=== PATIENT | female | born 1930 | race Caucasian/White ===

== ENCOUNTER → 2017-07-05 | Outpatient (CLI) | payer MEDICARE, BC ==
[2015-01-04 14:07] VITALS: BMI 24.7
[~2017-07-05] MED LIST: APIX5TAB PO; ASPI81TA94 PO; CALC1TAB32 PO; CARDIA PO; CARV12.578 PO; CARV25TA77 PO; CARV25TA78 PO; CARV6.2574 PO; CYCL10TA29 PO; DEN60I SUBQ; DILT-106 PO; DILT240C PO; DILT240C2 PO; DILT240C84 PO; FLE100 PO; HYDR-317 PO; HYDR-385 PO; HYDR-415 PO; LANS30CA70 PO; MECL25TA9 PO; METO-259 PO; METO25TA93 PO; METOPROLOL 25 MG PO; MOMR ENA; SIM10 PO; SIMV-49 PO; SIMV10TA96 PO; SIMV10TA98 PO; WARF-18 PO
--- NOTE | 2017-07-05 16:39 | RADIOLOGY IMAGING REPORT ---
[place] [facility] [place]: Cass Mooney : 1930 MR: [id number] V: [id number] EXAM DATE: ORDERING PHYSICIAN: ALLIE ESTRADA TECHNOLOGIST: [place] [facility] [place] Patient: Cass Mooney : 1930 Visit/Account:[id number] Date of Sevice: 07/05/2017 Exam type: 2 views right hip History: Possible fall, right hip pain Comparison: None. Findings: Subtle lucency through the neck of the right femur is noted. Recommend a CT scan to evaluate for occu lt fracture. Patient is remarkably osteopenic. Prominent enthesophytes extending from the admission. Benign chondroid lesion in the proximal metadiaphysis of the left femur is noted. Postoperative cardoza es are noted in the lower lumbosacral spine. IMPRESSION: 1. Patient is osteopenic with a subtle lucency through the neck of the right femur. I cannot exclude a nondisplaced fracture. If the patient has right hip pain, recommend a CT scan to exclude a fracture . Report Dictated By: Shai Street MD at 07/05/2017 4:31 PM Report E-Signed By: Shai Street MD at 07/05/2017 4:35 PM WSN:[id number]
== END ==
LOC: RAD 14:57
PROVIDERS: ATTEND Chiropractor
DX: M85.88 Other specified disorders of bone density and structure, other site (principal)

== ENCOUNTER → 2017-07-06 | Outpatient (CLI) | payer MEDICARE, BC ==
[2015-01-04 14:07] VITALS: BMI 24.7
--- NOTE | 2017-07-06 15:55 | RADIOLOGY IMAGING REPORT ---
FACILITY: [facility] PATIENT NAME: Cass Mooney : 1930 MR: [id number] V: [id number] EXAM DATE: ORDERING PHYSICIAN: ALLIE ESTRADA TECHNOLOGIST: [place] [facility] [place]: Cass Mooney : 1930 Visit/Account:[id number] Date of Sevice: 07/06/2017 CT of the right hip without contrast Indication: Fall. Evaluate for occult fracture. Comparison: Plain films one day earlier were reviewed. Technique: Axial CT images were obtained through the right hip. Reformatted coronal and sagittal imag es were reviewed. One of the following dose optimization techniques was utilized in the performance of this exam: Autom ated exposure control; adjustment of the mA and/or kV according to the patient's size; or use of an i terative reconstruction technique. Specific details can be referenced in the facility's radiology C T exam operational policy. Findings: No acute fracture is seen about the right hip. Specifically, no proximal femur fracture is seen. No a cetabulum or right pubic ramus fracture is seen. No right sacral fracture. Degenerative changes and postoperative changes involve the lumbar spine. There are mild severity falcon ges of sacroiliac joint osteoarthritis. Degenerative changes are seen at the pubic symphysis. At the right hip, mild-moderate osteoarthritis is present. There are enthesopathic changes at the glu teal insertions on the greater trochanter. Enthesopathic changes are seen within the right common ham string tendon. With respect to the soft tissues, no hematoma or fluid collection is seen about the right hip. No bonnie nopathy in the inguinal region. There is scattered atherosclerosis within the right femoral artery. In the pelvis, there are colonic diverticula identified. No free fluid is seen. There has been previo us hysterectomy. IMPRESSION: 1. No acute fracture deformity at the right hip. 2. No evidence of soft tissue hematoma or fluid collection. 3. Degenerative changes and postoperative changes in the low lumbar spine. 4. 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 Report Dictated By: Corey Kemp at 07/06/2017 3:43 PM Report E-Signed By: Corey Kemp at 07/06/2017 3:51 PM WSN:[id number]
== END ==
LOC: CT 13:57
PROVIDERS: ATTEND Chiropractor
DX: M16.11 Unilateral primary osteoarthritis, right hip (principal); M51.36 Other intervertebral disc degeneration, lumbar region

== ENCOUNTER → 2017-12-07 | Outpatient (CLI) | payer MEDICARE, BC ==
[2015-01-04 14:07] VITALS: BMI 24.7
[~2017-12-07] MED LIST changes: +ACET-1966 PO; +ACET-2146 PO; +ACET-2708 PO; +ASPI-1471 PO; +CALC1TAB85 PO; +CHOL10005 PO; +MELA1TAB15 PO; +METO-253 PO; -WARF-18 PO; +WARF5TAB23 PO
[2017-12-07 10:38] LABS: PLATELET COUNT, AUTOMATED 217 K/uL (150-450)
== END ==
LOC: LAB 09:59
PROVIDERS: ATTEND Family Medicine
DX: R19.7 Diarrhea, unspecified (principal)
CPT/HCPCS: 36415; 82040; 82247; 82310; 82374; 82435; 82565; 82947; 84075; 84132; 84155; 84295; 84450; 84460; 84520; 85025

== ENCOUNTER 2018-07-15 09:44 | Emergency (ER) | payer MEDICARE, BC ==
[2015-01-04 14:07] VITALS: Wt 59.0 kg
[2018-07-15] MEDS ORDERED: NS(*) 0.9% 1000 ML BAG 1,000 ML IV ONE (10:15)
--- NOTE | 2018-07-15 10:20 | ER Report ---
History and Physical Time Seen By MD: 09:55 Hx. of Stated Complaint: DIFFUSE DIARRHEA STARTING EARLY THIS AM, SON IS WORRIED ABOU DEHYDRATION CAUSING HER AFIB HPI/ROS CHIEF COMPLAINT: Diarrhea, dehydration HISTORY OF PRESENT ILLNESS: 80-year-old female with atrial fibrillation brought in by her son due to multiple episodes of loose stool this morning. Patient lives alone but adjacent to family. When son went to check on her this morning he noticed copious amounts of stool. He notes that none were bloody or black. He believes that this began at about 2 AM and patient had about 3-4 episodes. His primary reason for presenting is because she has atrial fibrillation and he is concerned that she would get dehydrated and have competitions do this. Patient history is limited due to dementia, however she is able to give review of systems. She notes that she has had some nausea, multiple loose stools, no abdominal pain. She has no fevers, chills, chest pain, shortness of breath. She has had no recent antibiotics, no recent hospitalizations, no known sick contacts. REVIEW OF SYSTEMS: Constitutional: No fever, no chills. Eyes: no blurred vision ENT: tolerating secretions Cardiovascular: No chest pain, no palpitations. Respiratory: No cough, no shortness of breath. Gastrointestinal: above Genitourinary: no dysuria Musculoskeletal: No back pain. Skin: No rashes. Neurological: No headache. Remainder of the 14 system rev: Yes Allergies: Coded Allergies: phenazopyridine (Verified Allergy, Unknown, 02/25/17) Home Meds Reported Medications Calcium Carbonate/Vitamin D3 (Caltrate 600 + D Soft Chew Tab) 1 Each Tab.chew, 1 TAB.CHEW PO DAILY 10/12/17 Cholecalciferol (Vitamin D3) (VITAMIN D3) 1,000 Unit Tablet, 1 TAB PO DAILY, TAB 10/12/17 Acetaminophen 500 Mg Tab (ACETAMINOPHEN EXTRA STRENGTH) 500 Mg Tablet, 2 TAB PO BID, TAB 10/12/17 Metoprolol Tartrate (METOPROLOL TARTRATE) 50 Mg Tab, 1 TAB PO BID 09/12/17 Warfarin Sodium (WARFARIN SODIUM) 5 Mg Tablet, 5 MG PO MWF 5mg Other 2.5, TAB take 1 tab po M/W/F, 0.5 tab po T//Sat/Sun 02/25/17 Discontinued Reported Medications Melatonin/Pyridoxine (MELATONIN 5 MG TABLET) 1 Each Tablet, 2 TAB PO HS 10/12/17 Reviewed Nurses Notes: Yes Hx Smoking: Yes Smoking Status: Former Smoker Hx Substance Use Disorder: No Hx Alcohol Use: No Constitutional Vital Sign - Last 24 Hours 07/15/18 09:57 Pulse 89 Resp 16 B/P (MAP) 133/89 Pulse Ox 90 O2 Delivery Room Air Physical Exam General Appearance: The patient is alert, has no immediate need for airway protection and no signs of toxicity. Eyes: Pupils equal and round no pallor or injection. ENT, Mouth: Mucous membranes are moist. Respiratory: There are no retractions, lungs are clear to auscultation. Cardiovascular: Irregular rate and rhythm no murmurs, rubs, gallops Gastrointestinal: Abdomen is soft and non tender, no masses, bowel sounds hyperactive Neurological: alert, oriented to person and place and events, not date. Moves all ext; no focal deficits Skin: Warm and dry, no rashes. Musculoskeletal: Extremities are nontender, nonswollen and have full range of motion. DIFFERENTIAL DIAGNOSIS: After history and physical exam differential diagnosis was considered for bacterial diarrrhea/c dif/ dehydration Medical Decision Making Data Points Result Diagram: 07/15/18 1002 07/15/18 1002 Laboratory Hematology Test 07/15/18 09:57 07/15/18 10:02 07/15/18 10:07 Urine Color Yellow Urine Clarity Clear Urine pH 5.0 pH (4.8-9.5) Urine Specific [place] 1.018 Urine Protein Negative mg/dL (NEGATIVE) Urine Glucose (UA) Negative mg/dL (NEGATIVE) Urine Ketones Negative mg/dL (NEGATIVE) Urine Blood Negative (NEGATIVE) Urine Nitrite Negative (NEGATIVE) Urine Bilirubin Negative (NEGATIVE) Urine Urobilinogen Negative mg/dL (0.2-1.9) Urine Leukocyte Esterase Negative (NEGATIVE) Urine RBC None /HPF (0-2/HPF) Urine WBC 1 /HPF (0-5/HPF) Urine Squamous Epithelial Cells None /LPF (</=FEW) Urine Bacteria Few /HPF (NONE-FEW) Urine Mucus Few /HPF (NONE-FEW) Red Blood Count 4.61 M/uL (4.17-5.56) Mean Corpuscular Volume 103.6 fL (80.0-96.0) Mean Corpuscular Hemoglobin 34.2 pg (26.0-33.0) Mean Corpuscular Hemoglobin Concent 33.0 g/dL (32.0-36.0) Red Cell Distribution Width 12.9 % (11.5-14.5) Mean Platelet Volume 7.7 fL (7.2-11.1) Neutrophils (%) (Auto) 92.3 % (39.4-72.5) Lymphocytes (%) (Auto) 5.2 % (17.6-49.6) Monocytes (%) (Auto) 2.2 % (4.1-12.4) Eosinophils (%) (Auto) 0.1 % (0.4-6.7) Basophils (%) (Auto) 0.2 % (0.3-1.4) Nucleated RBC Relative Count (auto) 0.1 /100WBC Neutrophils # (Auto) 9.4 K/uL (2.0-7.4) Lymphocytes # (Auto) 0.5 K/uL (1.3-3.6) Monocytes # (Auto) 0.2 K/uL (0.3-1.0) Eosinophils # (Auto) 0.0 K/uL (0.0-0.5) Basophils # (Auto) 0.0 K/uL (0.0-0.1) Nucleated RBC Absolute Count (auto) 0.01 K/uL Sodium Level 143 mmol/L (137-145) Potassium Level 4.3 mmol/L (3.5-5.0) Chloride Level 105 mmol/L (98-107) Carbon Dioxide Level 27 mmol/L (22-31) Blood Urea Nitrogen 24 mg/dl (7-18) Creatinine 0.80 mg/dl (0.52-1.04) Glomerular Filtration Rate Calc > 60.0 Random Glucose 128 mg/dl (75-110) Calcium Level 10.0 mg/dl (8.4-10.2) Total Bilirubin 1.5 mg/dl (0.2-1.3) Aspartate Amino Transf (AST/SGOT) 33 U/L (0-35) Alanine Aminotransferase (ALT/SGPT) 25 U/L (0-56) Alkaline Phosphatase 98 U/L (0-126) Total Protein 8.7 g/dl (6.3-8.2) Albumin 4.9 g/dl (3.5-5.0) Lipase 76 U/L (23-300) Stool Occult Blood (IFOB) Negative (NEGATIVE) Chemistry Test 07/15/18 09:57 07/15/18 10:02 07/15/18 10:07 Urine Color Yellow Urine Clarity Clear Urine pH 5.0 pH (4.8-9.5) Urine Specific [place] 1.018 Urine Protein Negative mg/dL (NEGATIVE) Urine Glucose (UA) Negative mg/dL (NEGATIVE) Urine Ketones Negative mg/dL (NEGATIVE) Urine Blood Negative (NEGATIVE) Urine Nitrite Negative (NEGATIVE) Urine Bilirubin Negative (NEGATIVE) Urine Urobilinogen Negative mg/dL (0.2-1.9) Urine Leukocyte Esterase Negative (NEGATIVE) Urine RBC None /HPF (0-2/HPF) Urine WBC 1 /HPF (0-5/HPF) Urine Squamous Epithelial Cells None /LPF (</=FEW) Urine Bacteria Few /HPF (NONE-FEW) Urine Mucus Few /HPF (NONE-FEW) White Blood Count 10.2 k/uL (4.5-11.0) Red Blood Count 4.61 M/uL (4.17-5.56) Hemoglobin 15.8 g/dL (12.0-16.0) Hematocrit 47.8 % (34.0-47.0) Mean Corpuscular Volume 103.6 fL (80.0-96.0) Mean Corpuscular Hemoglobin 34.2 pg (26.0-33.0) Mean Corpuscular Hemoglobin Concent 33.0 g/dL (32.0-36.0) Red Cell Distribution Width 12.9 % (11.5-14.5) Platelet Count 187 K/uL (150-450) Mean Platelet Volume 7.7 fL (7.2-11.1) Neutrophils (%) (Auto) 92.3 % (39.4-72.5) Lymphocytes (%) (Auto) 5.2 % (17.6-49.6) Monocytes (%) (Auto) 2.2 % (4.1-12.4) Eosinophils (%) (Auto) 0.1 % (0.4-6.7) Basophils (%) (Auto) 0.2 % (0.3-1.4) Nucleated RBC Relative Count (auto) 0.1 /100WBC Neutrophils # (Auto) 9.4 K/uL (2.0-7.4) Lymphocytes # (Auto) 0.5 K/uL (1.3-3.6) Monocytes # (Auto) 0.2 K/uL (0.3-1.0) Eosinophils # (Auto) 0.0 K/uL (0.0-0.5) Basophils # (Auto) 0.0 K/uL (0.0-0.1) Nucleated RBC Absolute Count (auto) 0.01 K/uL Glomerular Filtration Rate Calc > 60.0 Calcium Level 10.0 mg/dl (8.4-10.2) Total Bilirubin 1.5 mg/dl (0.2-1.3) Aspartate Amino Transf (AST/SGOT) 33 U/L (0-35) Alanine Aminotransferase (ALT/SGPT) 25 U/L (0-56) Alkaline Phosphatase 98 U/L (0-126) Total Protein 8.7 g/dl (6.3-8.2) Albumin 4.9 g/dl (3.5-5.0) Lipase 76 U/L (23-300) Stool Occult Blood (IFOB) Negative (NEGATIVE) Urinalysis Test 07/15/18 09:57 Urine Color Yellow Urine Clarity Clear Urine pH 5.0 pH (4.8-9.5) Urine Specific [place] 1.018 Urine Protein Negative mg/dL (NEGATIVE) Urine Glucose (UA) Negative mg/dL (NEGATIVE) Urine Ketones Negative mg/dL (NEGATIVE) Urine Blood Negative (NEGATIVE) Urine Nitrite Negative (NEGATIVE) Urine Bilirubin Negative (NEGATIVE) Urine Urobilinogen Negative mg/dL (0.2-1.9) Urine Leukocyte Esterase Negative (NEGATIVE) Urine RBC None /HPF (0-2/HPF) Urine WBC 1 /HPF (0-5/HPF) Urine Squamous Epithelial Cells None /LPF (</=FEW) Urine Bacteria Few /HPF (NONE-FEW) Urine Mucus Few /HPF (NONE-FEW) ED Course/Re-evaluation ED Course 88-year-old female presents after a few episodes of diarrhea this morning, without high-risk features. Patient appears very well, and was brought by son for concern for potential dehydration. She does not have clinical findings consi stent with dehydration. Labs are generally unremarkable with exception of mild bilirubin elevation. This is discussed with patient who will follow-up with primary doctor for reevaluation. Her stool occult is negative. Considered but doubt bacterial infectious, C. difficile, or other invasive diarrhea. Patient does not have stool in the emergency department. At this point, is reasonable to discharge with strict return precautions. Son is comfortable with this plan. Decision to Disposition Date: Jul 15, 2018 Decision to Disposition Time: 11:00 Depart Departure Latest Vital Signs Vital Signs Date Time Temp Pulse Resp B/P (MAP) Pulse Ox O2 Delivery O2 Flow Rate FiO2 07/15/18 09:57 89 16 133/89 90 Room Air Impression: Primary Impression: Diarrhea Condition: Improved Disposition: HOME OR SELF-CARE Referrals: SAMIR BRANTLEY MD (PCP) 2 Days Patient Instructions: Acute Diarrhea (ED) Additional Instructions: As we discussed, continue to hydrate as tolerated. Please return if unable to tolerate fluids, multiple episodes of vomiting, uncontrolled diarrhea, or any concerns. You may start Imodium if you have multiple episodes of diarrhea. As we discussed, your labs are generally unremarkable with the exception of the bilirubin which is slightly elevated at 1.5. Please have Dr. Briones recheck this next week. Problem Qualifiers Primary Impression: Diarrhea Diarrhea type: unspecified type Qualified Codes: R19.7 - Diarrhea, unspecified GIAN CUBA MD Jul 15, 2018 10:20
[2018-07-15 10:37] LABS: PLATELET COUNT, AUTOMATED 187 K/uL (150-450)
[2018-07-15 11:00] VITALS: BP 110/66
--- NOTE | 2018-07-15 11:54 | EKG ---
FACILITY: [facility] PATIENT NAME: AHMET REA : [id number] MR: [id number] V: [id number] EXAM DATE: ORDERING PHYSICIAN: GIAN CUBA TECHNOLOGIST: DOUG Test Reason : A FIB Blood Pressure : / mmHG Vent. 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 rate has increased BY 39 BPM QRS duration has decreased Nonspecific T wave abnormality now evident in Lateral leads Confirmed by KOTA ZIMMER ([id number]) on 07/15/2018 7:08:01 PM Referred By: ROSA ELENA Confirmed By:KOTA ZIMMER
== END 2018-07-15 11:29 | disposition home or self-care (01) ==
LOC: ER 10:03
DX: R19.7 Diarrhea, unspecified (principal)
CPT/HCPCS: 81001; 82274; 83690; 85025; 93005; 96360; 99283; J7030; 82040; 82247; 82310; 82374; 82435; 82565; 82947; 84075; 84132; 84155; 84295; 84450; 84460; 84520

== ENCOUNTER → 2018-07-24 | Outpatient (CLI) | payer MEDICARE, BC ==
[2015-01-04 14:07] VITALS: BMI 24.7
[~2018-07-24] MED LIST changes: +CITA-137 PO
== END ==
LOC: LAB 14:36
PROVIDERS: ATTEND Family Medicine
DX: E80.6 Other disorders of bilirubin metabolism (principal)
CPT/HCPCS: 36415; 82040; 82247; 82310; 82374; 82435; 82565; 82947; 84075; 84132; 84155; 84295; 84450; 84460; 84520

== ENCOUNTER 2018-08-13 12:16 | Observation (INO) | payer MEDICARE, BC ==
[~2018-08-13] VITALS: Ht 157.5 cm; Wt 52.6 kg
--- NOTE | 2018-08-13 12:27 | ER Report ---
History and Physical Time Seen By MD: 12:27 HPI/ROS CHIEF COMPLAINT: Right ankle, left foot pain HISTORY OF PRESENT ILLNESS: 88-year-old female patient presents to emergency room with complaint of right ankle, left foot pain. Patient states that she had a fall down the stairs this morning. The patient's [id number] states that she is not sure when this occurred. She states that she got a call from the patient and went to check on her. When she found her she was crawling try to make it to the bathroom. Patient has not taken any medication for this. Patient has past medical history of dementia. Patient denies any head injury or neck pain. She denies any nausea, vomiting or diarrhea. REVIEW OF SYSTEMS: Respiratory: No cough, no dyspnea. Cardiovascular: No chest pain, no palpitations. Gastrointestinal: No vomiting, no abdominal pain. Musculoskeletal: As noted above Allergies: Coded Allergies: phenazopyridine (Verified Allergy, Unknown, 08/13/18) Home Meds Active Scripts Citalopram Hydrobromide (CITALOPRAM HBR) 10 Mg Tablet, 10 MG PO QDAY for 30 Days, #30 TAB Prov:SAMIR BRANTLEY MD 07/24/18 Reported Medications Calcium Carbonate/Vitamin D3 (Caltrate 600 + D Soft Chew Tab) 1 Each Tab.chew, 1 TAB.CHEW PO DAILY 10/12/17 Acetaminophen 500 Mg Tab (ACETAMINOPHEN EXTRA STRENGTH) 500 Mg Tablet, 2 TAB PO BID, TAB 10/12/17 Metoprolol Tartrate (METOPROLOL TARTRATE) 50 Mg Tab, 1 TAB PO BID 09/12/17 Warfarin Sodium (WARFARIN SODIUM) 5 Mg Tablet, 5 MG PO MWF 5mg Other 2.5, TAB take 1 tab po M//, 0.5 tab po //Sat/Sun 02/25/17 Discontinued Reported Medications Cholecalciferol (Vitamin D3) (VITAMIN D3) 1,000 Unit Tablet, 1 TAB PO DAILY, TAB 10/12/17 Past Medical/Surgical History Patient has a past medical history of dementia, A. fib, hypertension, reflux, hysterectomy, arthritis, back pain, sinus surgery, anxiety. Patient has a surgical history of angioplasty 2, hysterectomy, spinal surgery. Patient has a family medical history of cancer. Reviewed Nurses Notes: Yes Hx Smoking: Yes Smoking Status: Former Smoker Hx Substance Use Disorder: No Hx Alcohol Use: No Constitutional Vital Sign - Last 24 Hours 08/13/18 08/13/18 08/13/18 08/13/18 12:16 12:25 12:27 12:30 Temp 97.9 Pulse ??? 72 Resp 20 B/P (MAP) 114/57 114/57 (76) 107/41 (63) Pulse Ox 90 O2 Delivery Room Air 08/13/18 08/13/18 08/13/18 08/13/18 12:31 12:46 13:00 13:01 Pulse 69 69 67 B/P (MAP) 57/38 (44) Pulse Ox 90 90 89 08/13/18 08/13/18 08/13/18 08/13/18 13:16 14:00 14:15 14:30 Pulse 78 68 61 64 B/P (MAP) 108/54 (72) 99/80 (86) Pulse Ox 77 93 86 89 08/13/18 08/13/18 08/13/18 14:45 15:00 15:15 Pulse 70 ? B/P (MAP) ???/??? (1665) Pulse Ox 89 81 Physical Exam General Appearance: The patient is alert, has no immediate need for airway protection and no current signs of toxicity. Respiratory: Chest is non tender, lungs are clear to auscultation. Cardiac: regular rate and rhythm Gastrointestinal: Abdomen is soft and non tender, no masses, bowel sounds normal. Musculoskeletal: Neck: Neck is supple and non tender. Extremities have full range of motion and are non tender. Patient has significant swelling and bruising to lateral malleolus on the right ankle and left foot and lateral malleolus. Skin: No rashes or lesions. Patient has blistering to top of the foot. DIFFERENTIAL DIAGNOSIS: After history and physical exam differential diagnosis was considered for fracture, contusion, sprain. Medical Decision Making EKG/Imaging Imaging INDICATION: fall, with fracture. DATE: 08/13/2018 2:02 PM. TECHNIQUE: CT FOOT W/O LT. Noncontrast axial CT imaging was performed through the left foot with sagittal and coronal reformats. One of the following dose optimization techniques was utilized in the performance of this exam: Automated exposure control; adjustment of the mA and/or kV according to the patient's size; or use of an iterative reconstruction technique. Specific details can be referenced in the facility's radiology CT exam operational policy. COMPARISON: Foot radiographs and ankle radiographs of the same day. FINDINGS: Fracture of the cuboid is extensively comminuted. A fracture of the lateral cuneiform is more subtle. Involving the undersurface of the bone. The middle cuneiform and medial cuneiform are intact. Fracturing of the fourth metatarsal base is notable on the medial side. A fracture of the third metatarsal base is oblique and nondisplaced. A fracture of the second metatarsal base is comminuted and mildly displaced. There is a fracture at the undersurface of the first metatarsal base. There may be an area of subtle fragmentation involving the navicular immediately adjacent to the anterior process of the calcaneus. Bone density is diffusely decreased at the foot and ankle. Subcutaneous soft tissues are diffusely edematous at the ankle. IMPRESSION: 1. Extensively comminuted fracture of the cuboid. 2. Fractures of the first through fourth metatarsal bases as noted. 3. Subtle fracture of the lateral cuneiform. 4. Possible area of fragmentation involving the navicular immediately adjacent to the anterior process of the calcaneus. Report Dictated By: Puma Roberts MD at 08/13/2018 2:02 PM Report E-Signed By: Puma Roberts MD at 08/13/2018 2:20 PM EXAMINATION: CT Cervical Spine Without Contrast 08/13/2018 12:40 PM HISTORY: Fall. Pain. COMPARISON STUDIES: Separate CT head today. TECHNIQUE: Axial images were obtained from the skull base through the upper thoracic spine without IV contrast administration. Coronal and sagittal reformatted images were obtained from the axial source data. One of the following dose optimization techniques was utilized in the performance of this exam: Automated exposure control; adjustment of the mA and/or kV according to the patient's size; or use of an iterative reconstruction technique. Specific details can be referenced in the facility's radiology CT exam operational policy. FINDINGS: Pre-vertebral soft tissues: negative Alignment: Slight degenerative appearing anterolistheses at C3-4 and C4-5 and C7-T1. Vertebral bodies: negative Posterior elements: Facet spurring most notably towards the left at C2-3 and C4- 5. Disc Spaces: Moderate disc loss and spurring at C5-6 with milder degenerative changes at other levels. Visualized soft tissues anterior neck: Left carotid atherosclerotic calcifications. Visualized lung / mediastinum: Emphysema. IMPRESSION: No acute bony injury of the cervical spine. Report Dictated By: Hayden Horowitz MD at 08/13/2018 1:57 PM Report E-Signed By: Hayden Horowitz MD at 08/13/2018 2:02 PM EXAMINATION: CT Head Without Contrast 08/13/2018 12:40 PM HISTORY: fall with pain TECHNIQUE: Contiguous axial images were obtained from the skull base to the vertex without intravenous contrast. One of the following dose optimization techniques was utilized in the performance of this exam: Automated exposure control; adjustment of the mA and/or kV according to the patient's size; or use of an iterative reconstruction technique. Specific details can be referenced in the facility's radiology CT exam operational policy. COMPARISON STUDIES: Separate CT cervical spine today. CT head 01/06/2011 FINDINGS: Ventricles / sulci / fissures: Enlarged but within normal limits for age. Masses / hemorrhage / midline shift: negative White matter: Moderate number of white matter lucencies, non-specific and age appropriate. These have shown some progression from the comparison. Fernandes-white differentiation: negative Extra-axial spaces: negative Dural venous sinuses / arterial structures: negative Skull base / calvarium: negative Visualized mastoid air cells / paranasal sinuses: negative IMPRESSION: Unremarkable head CT for age. No evidence of mass, acute ischemia or hemorrhage. Report Dictated By: Hayden Horowitz MD at 08/13/2018 1:53 PM Report E-Signed By: Hayden Horowitz MD at 08/13/2018 2:03 PM ANKLE 3 VIEW MIN RIGHT History: Right ankle swelling. Comparison study: None. Findings: There is diffuse osteopenia and soft tissue swelling are related lateral malleolus. On one of the images there appears to be a subtle avulsion fracture from the tip of the distal fibula. There is enthesopathic change at the site of attachment of the Achilles tendon and plantar aponeurosis upon the calcaneus. IMPRESSION: 1. Soft tissue stone over the lateral malleolus with subtle findings of a potential avulsion injury from the tip of the distal fibula suggesting avulsion of the fibulocalcaneal ligament. 2. Enthesopathic changes as described above. Report Dictated By: Wesley Mena MD at 08/13/2018 1:16 PM Report E-Signed By: Wesley Mena MD at 08/13/2018 1:17 PM FOOT 3 VIEW LEFT History: Left foot pain after fall. Comparison study: None. Findings: There is diffuse osteopenia. There is an oblique fracture through the base of the second metatarsal that could represent a Lisfranc injury. Correlation clinical findings is recommended. There is a second fracture involving the distal metadiaphyseal region of the third metatarsal with mild impaction and angulation. There is enthesopathic change at the site of attachment of the Achilles tendon and plantar aponeurosis upon the calcaneus. There is vascular calcification. IMPRESSION: 1. Oblique fracture at the base of the second metatarsal potentially creating i nstability between the base of the first and second metatarsal consistent with a Lisfranc injury. A CT scan may be helpful to further delineate these findings. 2. Oblique angulated fracture with impaction at the distal metadiaphyseal region of the third metatarsal. 3. Enthesopathic changes as described above. Report Dictated By: Wesley Mena MD at 08/13/2018 1:13 PM Report E-Signed By: Wesley Mena MD at 08/13/2018 1:16 PM ED Course/Re-evaluation ED Course Patient was admitted to an exam room, history and physical were obtained. Differential diagnoses were considered. On examination patient has significant swelling to the right ankle as well as the left foot. Patient does have some blistering on the left foot. An x-ray was done of the right ankle and left foot. Right ankle showed an avulsion fracture on the lateral malleolus. X-ray showed fracture fracture of the foot, possible Lisfranc fracture. He recommended a CT scan for further evaluation. With the patient having a possible fall a CT scan of the head, cervical spine and left foot were ordered. CT scan of the head showed no acute findings, cervical spine was negative. Foot does show a fracture of the cuboid, cuneiform, metatarsals one through 4. I discussed results of the CT with patient and her [id number]. I discussed the case with Dr. Rojas, orthopedist. He felt the patient would be able to be discharged home, that she should elevate her foot above her heart and he would arrange for Dr. Kumar's nurse to call in the morning. It is my opinion that with fractures on the right malleolus as well as the left foot and with her dementia the patient should be admitted and was monitored overnight to make sure she got up to go to the bathroom and round. Family verbalized agreement with that. I discussed the case with Dr. Mijares, hospitalist, who agreed to accept the patient for admission. Patient family verbalized understanding and agreement with plan. Decision to Disposition Date: Aug 13, 2018 Decision to Disposition Time: 14:45 Depart Departure Latest Vital Signs Vital Signs Date Time Temp Pulse Resp B/P (MAP) Pulse Ox O2 Delivery O2 Flow Rate FiO2 08/13/18 15:15 ??? 08/13/18 15:00 ???/??? 1669) 81 08/13/18 12:25 97.9 20 Room Air Impression: Primary Impression: Fracture, foot Additional Impressions: Dementia Avulsion fracture of ankle Condition: Condition Unchanged Disposition: Admitted from ER Referrals: SAMIR BRANTLEY MD (PCP) Problem Qualifiers Primary Impression: Fracture, foot Encounter type: initial encounter Fracture type: closed Laterality: left Qualified Codes: S92.902A - Unspecified fracture of left foot, initial encounter for closed fracture Additional Impressions: Dementia Dementia type: unspecified type Dementia behavioral disturbance: without behavioral disturbance Qualified Codes: F03.90 - Unspecified dementia without behavioral disturbance Avulsion fracture of ankle Encounter type: initial encounter Fracture type: closed Laterality: right Qualified Codes: S82.891A - Other fracture of right lower leg, initial encounter for closed fracture KEON WARD Aug 13, 2018 12:27
--- NOTE | 2018-08-13 13:20 | RADIOLOGY IMAGING REPORT ---
FACILITY: [facility] - [place] PATIENT NAME: Cass Mooney : 1930 MR: [id number] V: [id number] EXAM DATE: ORDERING PHYSICIAN: KEON WARD TECHNOLOGIST: Location: [facility] Patient: Cass Mooney : 1930 Visit/Account:[id number] Date of Sevice: 08/13/2018 FOOT 3 VIEW LEFT History: Left foot pain after fall. Comparison study: None. Findings: There is diffuse osteopenia. There is an oblique fracture through the base of the second m etatarsal that could represent a Lisfranc injury. Correlation clinical findings is recommended. There is a second fracture involving the distal metadiaphyseal region of the third metatarsal with mi ld impaction and angulation. There is enthesopathic change at the site of attachment of the Achilles tendon and plantar aponeurosi s upon the calcaneus. There is vascular calcification. IMPRESSION: 1. Oblique fracture at the base of the second metatarsal potentially creating instability between the base of the first and second metatarsal consistent with a Lisfranc injury. A CT scan may be helpful to further delineate these findings. 2. Oblique angulated fracture with impaction at the distal metadiaphyseal region of the third metatar dorothea. 3. Enthesopathic changes as described above. Report Dictated By: Wesley Mena MD at 08/13/2018 1:13 PM Report E-Signed By: Wesley Mena MD at 08/13/2018 1:16 PM WSN:[id number]
--- NOTE | 2018-08-13 13:21 | RADIOLOGY IMAGING REPORT ---
FACILITY: [facility] - [place] PATIENT NAME: Cass Mooney : 1930 MR: [id number] V: [id number] EXAM DATE: ORDERING PHYSICIAN: KEON WARD TECHNOLOGIST: Location: [facility] - [place] Patient: Cass Mooney : 1930 Visit/Account:[id number] Date of Sevice: 08/13/2018 ANKLE 3 VIEW MIN RIGHT History: Right ankle swelling. Comparison study: None. Findings: There is diffuse osteopenia and soft tissue swelling are related lateral malleolus. On one of the images there appears to be a subtle avulsion fracture from the tip of the distal fibula. There is enthesopathic change at the site of attachment of the Achilles tendon and plantar aponeurosi s upon the calcaneus. IMPRESSION: 1. Soft tissue stone over the lateral malleolus with subtle findings of a potential avulsion injury f rom the tip of the distal fibula suggesting avulsion of the fibulocalcaneal ligament. 2. Enthesopathic changes as described above. Report Dictated By: Wesley Mena MD at 08/13/2018 1:16 PM Report E-Signed By: Wesley Mena MD at 08/13/2018 1:17 PM WSN:[id number]
--- NOTE | 2018-08-13 14:07 | RADIOLOGY IMAGING REPORT ---
[place] [facility] [place]: Cass Mooney : 1930 MR: [id number] V: [id number] EXAM DATE: ORDERING PHYSICIAN: KEON WARD TECHNOLOGIST: Location: [facility] [place] Patient: Cass Mooney : 1930 Visit/Account:[id number] Date of Sevice: 08/13/2018 EXAMINATION: CT Cervical Spine Without Contrast 08/13/2018 12:40 PM HISTORY: Fall. Pain. COMPARISON STUDIES: Separate CT head today. TECHNIQUE: Axial images were obtained from the skull base through the upper thoracic spine without I V contrast administration. Coronal and sagittal reformatted images were obtained from the axial cox branson e data. One of the following dose optimization techniques was utilized in the performance of this exam: Autom ated exposure control; adjustment of the mA and/or kV according to the patient's size; or use of an i terative reconstruction technique. Specific details can be referenced in the facility's radiology C T exam operational policy. FINDINGS: Pre-vertebral soft tissues: negative Alignment: Slight degenerative appearing anterolistheses at C3-4 and C4-5 and C7-T1. Vertebral bodies: negative Posterior elements: Facet spurring most notably towards the left at C2-3 and C4-5. Disc Spaces: Moderate disc loss and spurring at C5-6 with milder degenerative changes at other levels . Visualized soft tissues anterior neck: Left carotid atherosclerotic calcifications. Visualized lung / mediastinum: Emphysema. IMPRESSION: No acute bony injury of the cervical spine. Report Dictated By: Hayden Horowitz MD at 08/13/2018 1:57 PM Report E-Signed By: Hayden Horowitz MD at 08/13/2018 2:02 PM WSN:[id number]
--- NOTE | 2018-08-13 14:07 | RADIOLOGY IMAGING REPORT ---
FACILITY: [facility] PATIENT NAME: Cass Mooney : 1930 MR: [id number] V: [id number] EXAM DATE: ORDERING PHYSICIAN: KEON WARD TECHNOLOGIST: Location: [facility] Patient: Cass Mooney : 1930 Visit/Account:[id number] Date of Sevice: 08/13/2018 EXAMINATION: CT Head Without Contrast 08/13/2018 12:40 PM HISTORY: fall with pain TECHNIQUE: Contiguous axial images were obtained from the skull base to the vertex without intraven ous contrast. One of the following dose optimization techniques was utilized in the performance of this exam: Autom ated exposure control; adjustment of the mA and/or kV according to the patient's size; or use of an i terative reconstruction technique. Specific details can be referenced in the facility's radiology C T exam operational policy. COMPARISON STUDIES: Separate CT cervical spine today. CT head 01/06/2011 FINDINGS: Ventricles / sulci / fissures: Enlarged but within normal limits for age. Masses / hemorrhage / midline shift: negative White matter: Moderate number of white matter lucencies, non-specific and age appropriate. These have shown some progression from the comparison. Fernandes-white differentiation: negative Extra-axial spaces: negative Dural venous sinuses / arterial structures: negative Skull base / calvarium: negative Visualized mastoid air cells / paranasal sinuses: negative IMPRESSION: Unremarkable head CT for age. No evidence of mass, acute ischemia or hemorrhage. Report Dictated By: Hayden Horowitz MD at 08/13/2018 1:53 PM Report E-Signed By: Hayden Horowitz MD at 08/13/2018 2:03 PM WSN:[id number]
--- NOTE | 2018-08-13 14:24 | RADIOLOGY IMAGING REPORT ---
FACILITY: [facility] - [place] PATIENT NAME: Cass Mooney : 1930 MR: [id number] V: [id number] EXAM DATE: ORDERING PHYSICIAN: KEON WARD TECHNOLOGIST: Location: [facility] - [place] Patient: Cass Mooney : 1930 Visit/Account:[id number] Date of Sevice: 08/13/2018 INDICATION: fall, with fracture. DATE: 08/13/2018 2:02 PM. TECHNIQUE: CT FOOT W/O LT. Noncontrast axial CT imaging was performed through the left foot with sagi ttal and coronal reformats. One of the following dose optimization techniques was utilized in the per formance of this exam: Automated exposure control; adjustment of the mA and/or kV according to the pa tient's size; or use of an iterative reconstruction technique. Specific details can be referenced i n the facility's radiology CT exam operational policy. COMPARISON: Foot radiographs and ankle radiographs of the same day. FINDINGS: Fracture of the cuboid is extensively comminuted. A fracture of the lateral cuneiform is more subtle. Involving the undersurface of the bone. The middl e cuneiform and medial cuneiform are intact. Fracturing of the fourth metatarsal base is notable on the medial side. A fracture of the third metat arsal base is oblique and nondisplaced. A fracture of the second metatarsal base is comminuted and mi ldly displaced. There is a fracture at the undersurface of the first metatarsal base. There may be an area of subtle fragmentation involving the navicular immediately adjacent to the ante rior process of the calcaneus. Bone density is diffusely decreased at the foot and ankle. Subcutaneous soft tissues are diffusely edematous at the ankle. IMPRESSION: 1. Extensively comminuted fracture of the cuboid. 2. Fractures of the first through fourth metatarsal bases as noted. 3. Subtle fracture of the lateral cuneiform. 4. Possible area of fragmentation involving the navicular immediately adjacent to the anterior proces s of the calcaneus. Report Dictated By: Puma Roberts MD at 08/13/2018 2:02 PM Report E-Signed By: Puma Roberts MD at 08/13/2018 2:20 PM WSN:[id number]
[2018-08-13] MEDS ORDERED: MORPHINE 2 MG/ML SYR IVP ONE (15:05)
[2018-08-13] MEDS ORDERED: APAP/HYDROCODONE 325/5 TAB PO ONE (15:10)
[2018-08-13 16:22] VITALS: BP 130/102
[2018-08-13] MEDS ORDERED: FLUSH 10 ML SYR IVP PRN (19:40)
[2018-08-13] MEDS: IBUPROFEN 200 MG TAB PO PRN (19:51)
[2018-08-13] MEDS: ACETAMINOPHEN 325 MG TAB PO PRN (21:51)
[2018-08-13 21:56] VITALS: BP 101/61
--- NOTE | 2018-08-13 22:37 | History & Physical ---
History of Present Illness Chief Complaint foot Fx, inability to ambulate History of Present Illness 88F presented after fall unable to ambulate. PMHx significant for afib, dementia. Fell last night and was found day of admission by family unable to walk. Reports she fell down stairs in her home, work up revealed avulsion Fx of R ankle, with multiple fractures of L foot. Dr Rojas was consulted from the ER who recommended outpatient follow up and no weight bearing. Patient has fairly advanced dementia and is not able to care for herself at home. Family are unable to provide 24 hour care and assistance. Admitted to assist family with arranging care for patient. History Problems: (1) Atrial fibrillation Status: Chronic (2) CAD (coronary artery disease) Status: Chronic (3) Dementia Status: Chronic Home Meds Active Scripts Citalopram Hydrobromide (CITALOPRAM HBR) 10 Mg Tablet, 10 MG PO QDAY for 30 Days, #30 TAB Prov:SAMIR BRANTLEY MD 07/24/18 Reported Medications Calcium Carbonate/Vitamin D3 (Caltrate 600 + D Soft Chew Tab) 1 Each Tab.chew, 1 TAB.CHEW PO DAILY 10/12/17 Acetaminophen 500 Mg Tab (ACETAMINOPHEN EXTRA STRENGTH) 500 Mg Tablet, 2 TAB PO BID, TAB 10/12/17 Metoprolol Tartrate (METOPROLOL TARTRATE) 50 Mg Tab, 1 TAB PO BID 09/12/17 Warfarin Sodium (WARFARIN SODIUM) 5 Mg Tablet, 5 MG PO MWF 5mg Other 2.5, TAB take 1 tab po M/W/F, 0.5 tab po T/Th/Sat/Sun 02/25/17 Discontinued Reported Medications Cholecalciferol (Vitamin D3) (VITAMIN D3) 1,000 Unit Tablet, 1 TAB PO DAILY, TAB 10/12/17 Allergies: Coded Allergies: phenazopyridine (Verified Allergy, Unknown, 08/13/18) Patient History: FH: heart failure MOTHER, , Age:85 Squamous cell carcinoma of skin CHILD Hx Smoking: Yes (30 years ago) Smoking Status: Former Smoker Caffeine Intake: Coffee Caffeine/Cups Per Day: 3-4 cups/day Hx Alcohol Use: No Hx Substance Use Disorder: No Social Drug Use: Never Review of Systems All Systems Reviewed/Normal: Yes, Except as Noted Musculoskeletal: Pain Exam Vital Signs Vital Signs Date Time Temp Pulse Resp B/P (MAP) Pulse Ox O2 Delivery O2 Flow Rate FiO2 08/13/18 21:56 98.5 87 17 101/61 (74) 87 Room Air General Appearance: No Acute Distress (pleasantly demented), Afebrile Neuro: No Gross deficits ENT: Normal Cardiovascular: Other (irregularly irregular) Respiratory: No Respiratory Distress GI: Abd Soft and Non-Tender Extremities: Warm, Pulses, Perfused, Other (ecchymosis of R ankle, edema) Assessment and Plan Problems: (1) Dementia Status: Chronic Assessment & Plan: Advanced, unable to care for self with limited mobility. She has forgotten she has fracture and is very high risk for fall and further complications and increased morbidity. Will consult social work and PT to assist in evaluation and placement options for family. (2) Fracture, foot Assessment & Plan: Will need outpatient ortho consult. Non-weight bearing, splint in place. (3) Avulsion fracture of ankle Status: Acute Assessment & Plan: Unlikely any intervention needed, pain control. (4) Atrial fibrillation Status: Chronic Assessment & Plan: On chronic warfarin. Venous Thromboembolism Antithrombotics Is Pt On Any Antithrombotics?: Yes Exam Sepsis Risk: No Definite Risk Problem Qualifiers (1) Fracture, foot: Encounter type: initial encounter Fracture type: closed Laterality: left Qualified Codes: S92.902A - Unspecified fracture of left foot, initial encounter for closed fracture (2) Avulsion fracture of ankle: Encounter type: initial encounter Fracture type: closed Laterality: right Qualified Codes: S82.891A - Other fracture of right lower leg, initial encounter for closed fracture FRANK MILAN DO Aug 13, 2018 22:37
[2018-08-13 23:43] VITALS: BP 108/43
[2018-08-14] MEDS: IBUPROFEN 200 MG TAB PO PRN ×3 (03:09→16:15)
[2018-08-14] MEDS: ACETAMINOPHEN 325 MG TAB PO PRN ×3 (05:51→22:29)
[2018-08-14 07:46] VITALS: BP 108/64
[2018-08-14] MEDS ORDERED: INFLUENZA VIRUS VAC 0.5ML SYR IM ONLY ONE (09:00)
--- NOTE | 2018-08-14 09:05 | NUR ---
Physical Therapy Impression Pt is pleasantly confused. SBA for bed mobility with cues to prevent WB through L) LE with bed mob. PT provided extensive verbal cues and demonstration of stand pivot transfer from bed<>chair with RW while maintaining NWB of L) LE. Pt completed 3 pivot transfers with Asha x2 with RW, with one person dedicated to maintaining NWB of the L) LE. Pt demonstrates good ability to slide/hop on R) LE for transfers. PT placed visual reminder on the dorsum of pt's L) foot to assist with maintenance of WB status. It is likely that pt would need to negotiate stairs upon d.c home as well, but home set up is unknown at this time. Pt will likely require 24 hr care upon d/c d/t confusion. Physical Therapy Goals 1: Pt to complete bed mobility with Juan J 2: Pt to complete transfers with SBA and RW 3: Pt to maintain NWB of L) LE with all mobility. Patient's Goals Addendum: 08/15/18 at 1352 by AALIYAH QUINTANA PT Dr. Liriano-Armani reports that pt is WBAT to R) LE and NWB to L) LE prior to treatment session completed on 08/14/18
[2018-08-14 10:14] VITALS: Ht 157.5 cm; Wt 52.6 kg
[2018-08-14 11:11] LABS: PLATELET COUNT, AUTOMATED 143 K/uL (150-450)
[2018-08-14 11:19] LABS: INR 1.78
--- NOTE | 2018-08-14 12:45 | Hospitalist Progress Note ---
Subjective Progress Notes Subjective She is pleasantly confused - oriented only to person. Physical Exam Vital Signs Date Time Temp Pulse Resp B/P (MAP) Pulse Ox O2 Delivery O2 Flow Rate FiO2 08/14/18 10:19 90 Room Air 08/14/18 07:46 98.7 86 16 108/64 (79) General Appearance: Alert, Awake Extremities: Other (LLE in posterior splint/some ecchymoses of toes. RLE with some mild tenderness over lateral malleolous.) Psych: Other (oriented only to person) Result Diagram: 08/14/18 1102 08/14/18 1102 Assessment and Plan Problems: (1) Dementia Status: Chronic Assessment & Plan: Advanced. She will be unable to care for self with limited mobility. She has forgotten she has fracture and is very high risk for falls/further complications/increased morbidity. Social work and PT to assist in evaluation and placement options for patient/family. (2) Fracture, foot Assessment & Plan: Will need orthopedics to consult regarding any further evaluation or surgical intervention. Currently, she is non-weight bearing and splint in place. (3) Avulsion fracture of ankle Status: Acute Assessment & Plan: Unlikely any intervention needed other than pain control. (4) Atrial fibrillation Status: Chronic Assessment & Plan: On chronic warfarin therapy. Watch INR and modify regimen as needed. She has been rate controlled with metoprolol - will continue. Exam Sepsis Risk: No Definite Risk Problem Qualifiers (1) Fracture, foot: Encounter type: initial encounter Fracture type: closed Laterality: left Qualified Codes: S92.902A - Unspecified fracture of left foot, initial encounter for closed fracture (2) Avulsion fracture of ankle: Encounter type: initial encounter Fracture type: closed Laterality: right Qualified Codes: S82.891A - Other fracture of right lower leg, initial encounter for closed fracture MADISON SALOMON MD Aug 14, 2018 12:45
[2018-08-14] MEDS: WARFARIN SOD 5 MG TAB PO SCH (13:25)
[2018-08-14 20:03] VITALS: BP 124/63
[2018-08-14] MEDS: METOPROLOL TART 50 MG TAB PO SCH (21:10)
[2018-08-15] MEDS: IBUPROFEN 200 MG TAB PO PRN ×3 (00:50→23:02)
[2018-08-15 00:52] VITALS: BP 121/49
[2018-08-15 06:30] LABS: INR 1.68
[2018-08-15 07:28] VITALS: BP 119/88
[2018-08-15] MEDS: METOPROLOL TART 50 MG TAB PO SCH ×2 (09:14→20:50)
--- NOTE | 2018-08-15 12:05 | Hospitalist Progress Note ---
Subjective Progress Notes Subjective She is pleasantly confused this morning. She had no acute events overnight. Patient Complains of: Cardiovascular: No: Chest Pain Respiratory: No: Shortness of Breath Physical Exam Vital Signs Date Time Temp Pulse Resp B/P (MAP) Pulse Ox O2 Delivery O2 Flow Rate FiO2 08/15/18 09:54 90 Room Air 08/15/18 07:28 97.8 81 16 119/88 (98) Intake and Output 08/15/18 07:00 Intake Total 0 ml Output Total 350 ml Balance -350 ml Intake Oral 0 ml Output Urine Total 350 ml # Voids 4 General Appearance: Alert, Awake, No Acute Distress, Afebrile Neuro: No Gross deficits Cardiovascular: Regular Rate and Rhythm Respiratory: No Respiratory Distress, Clear to Auscultation GI: Soft and Non-Tender Extremities: Other (left foot has large blister and bruising present.) Psych: Alert & Oriented X3, Appropriate Mood & Affect Result Diagram: 08/14/18 1102 08/14/18 1102 Assessment and Plan Problems: (1) Dementia Status: Chronic Assessment & Plan: Advanced. She will be unable to care for self with limited mobility. She has forgotten she has fracture and is very high risk for falls/further complications/increased morbidity. Social work and PT to assist in evaluation and placement options for patient/family. (2) Fracture, foot Assessment & Plan: Will need orthopedics to consult regarding any further evaluation or surgical intervention. Currently, she is non-weight bearing and splint in place. (3) Avulsion fracture of ankle Status: Acute Assessment & Plan: Unlikely any intervention needed other than pain control. She will be weight bearing as tolerated to right lower extremity. Ortho to consult. (4) Atrial fibrillation Status: Chronic Assessment & Plan: On chronic warfarin therapy. Watch INR and modify regimen as needed. She has been rate controlled with metoprolol - will continue. Exam Sepsis Risk: No Definite Risk Problem Qualifiers (1) Fracture, foot: Encounter type: initial encounter Fracture type: closed Laterality: left Qualified Codes: S92.902A - Unspecified fracture of left foot, initial encounter for closed fracture (2) Avulsion fracture of ankle: Encounter type: initial encounter Fracture type: closed Laterality: right Qualified Codes: S82.891A - Other fracture of right lower leg, initial encounter for closed fracture BENNIE BRANCHP Aug 15, 2018 12:05
--- NOTE | 2018-08-15 12:18 | NUR ---
Physical Therapy Impression Pt politely refused PT offer for seated LE ther-ex at EOB to include marching, LAQ, hip abd/add and ham curls. Pt reports that she will be having visitors and would prefer not to participate. Pt also reporting pain of L) foot. RN notified. PT will continue to attempt mobility with pt as appropriate. Ortho to consult per RN. Physical Therapy Goals 1: Pt to complete bed mobility with Juan J 2: Pt to complete transfers with SBA and RW 3: Pt to maintain NWB of L) LE with all mobility. Patient's Goals
[2018-08-15] MEDS: ACETAMINOPHEN 325 MG TAB PO PRN ×2 (12:25→20:50)
[2018-08-15] MEDS ORDERED: WARFARIN SOD 2.5 MG TAB PO SCH (13:00)
[2018-08-15 14:43] VITALS: BP 114/58
[2018-08-15 19:05] VITALS: BP 101/48
[2018-08-15 23:02] VITALS: BP 132/52
[2018-08-16 04:21] VITALS: BP 145/75
[2018-08-16] MEDS: ACETAMINOPHEN 325 MG TAB PO PRN (04:23)
[2018-08-16 06:17] LABS: INR 1.84
[2018-08-16] MEDS: IBUPROFEN 200 MG TAB PO PRN (06:54)
[2018-08-16] MEDS ORDERED: MORPHINE 2 MG/ML SYR IVP ONE (09:10)
[2018-08-16] MEDS: METOPROLOL TART 50 MG TAB PO SCH (09:24)
--- NOTE | 2018-08-16 10:14 | RADIOLOGY IMAGING REPORT ---
FACILITY: [facility] [place] PATIENT NAME: Cass Mooney : 1930 MR: [id number] V: [id number] EXAM DATE: ORDERING PHYSICIAN: BENNIE BRANCH TECHNOLOGIST: Location: [facility] - [place] Patient: Cass Mooney : 1930 Visit/Account:[id number] Date of Sevice: 08/16/2018 Lumbar spine 2 views: HISTORY: Fall, low back pain COMPARISON: Correlation made with prior CT scan 09/08/2010 FINDINGS: 2 views were obtained of the lumbar spine. Patient status post posterior interbody fusion L4-5. Hardware appears intact and unchanged. There is anatomic alignment of fusion. Disc space is narrowed at this level similar to previous. There is mild to moderate narrowing of the L5-S1 disc sp nirav. Grade 1 anterolisthesis of L3 on L4, approximately 4-5 mm is not significant change. There is mild to moderate disc space narrowing at L1-2, L2-3 and L3-4. Facet degenerative changes and hypertr ophy present at the upper lumbar levels. Vertebral body height is well maintained. There is no foca l compression deformity. Bones are osteopenic. Very mild scoliosis convex to the left is present. Extensive vascular calcifications noted. IMPRESSION: 1. No evidence of acute osseous abnormality. 2. Multilevel spondylitic changes with slight progression compared to previous. Grade 1 anterolisth esis L3 on L4 persists and is unchanged. 3. Patient status post L4-5 fusion without radiographic evidence of a complication. There is no sig nificant change. Report Dictated By: Bren García MD at 08/16/2018 10:03 AM Report E-Signed By: Bren García MD at 08/16/2018 10:10 AM WSN:[id number]
[2018-08-16] MEDS ORDERED: IBUP-56 PO (11:19)
--- NOTE | 2018-08-16 11:25 | Hospitalist Depart ---
Discharge Summary Reason for Hosp/Final Diag: (1) Dementia Status: Chronic Hospital Course & Plan: Advanced. She will be unable to care for self with limited mobility. She has forgotten she has fracture and is very high risk for falls/further complications/increased morbidity. Patient will be transferred to [facility] assisted living facility an have 24 hour care givers. (2) Fracture, foot Hospital Course & Plan: Dr. Kumar saw patient in consult regarding any further evaluation or surgical intervention, at this time no surgical intervention is needed. Currently, she is non-weight bearing to the left lower extremity and splint in place. (3) Avulsion fracture of ankle Status: Acute Hospital Course & Plan: Unlikely any intervention needed other than pain control. She will be weight bearing as tolerated to right lower extremity and wear air cast to ankle on right leg. (4) Atrial fibrillation Status: Chronic Hospital Course & Plan: On chronic warfarin therapy. Her INR is 1.84 this morning. Watch INR and modify regimen as needed. She has been rate controlled with metoprolol - will continue. Departure Latest Vital Signs Vital Signs 08/16/18 04:21 Temp 97.9 Pulse 78 Resp 16 B/P (MAP) 145/75 (98) Pulse Ox 88 O2 Delivery Room Air Weight (Pounds): 116 Result Diagram: 08/14/18 1102 08/14/18 1102 Condition: Improved Discharge: Assisted Living PT/OT Follow Up For: PT For Strengthening, OT For ADL's, PT Evaluation and Treat, OT Evaluation and Treat Discharge Instructions Home Meds Active Scripts Ibuprofen (IBUPROFEN) 200 Mg Tablet, 200-400 MG PO Q6H PRN for PAIN, #60 TAB Prov:BENNIE BRANCH 08/16/18 Citalopram Hydrobromide (CITALOPRAM HBR) 10 Mg Tablet, 10 MG PO QDAY for 30 Days, #30 TAB Prov:SAMIR BRANTLEY MD 07/24/18 Reported Medications Calcium Carbonate/Vitamin D3 (Caltrate 600 + D Soft Chew Tab) 1 Each Tab.chew, 1 TAB.CHEW PO DAILY 10/12/17 Acetaminophen 500 Mg Tab (ACETAMINOPHEN EXTRA STRENGTH) 500 Mg Tablet, 2 TAB PO Q8H PRN for PAIN, TAB 10/12/17 Metoprolol Tartrate (METOPROLOL TARTRATE) 50 Mg Tab, 1 TAB PO BID 09/12/17 Warfarin Sodium (WARFARIN SODIUM) 5 Mg Tablet, 5 MG PO MWF 5mg Other 2.5, TAB take 1 tab po //, 0.5 tab po //Tue/Sun 02/25/17 Discontinued Reported Medications Cholecalciferol (Vitamin D3) (VITAMIN D3) 1,000 Unit Tablet, 1 TAB PO DAILY, TAB 10/12/17 Diet: Regular Activity: As Tolerated, With Walker Special Instructions: Weight bearing status: Non-weight bearing to left leg, weight bearing as tolerated to right leg Take Tylenol or Ibuprofen for pain. Continue PT/OT. Copies to: SAMIR BRANTLEY MD; TAMMY ARNOLD DO ; Venous Thromboembolism Antithrombotics Is Pt On Any Antithrombotics?: Yes Problem Qualifiers (1) Fracture, foot: Encounter type: initial encounter Fracture type: closed Laterality: left Qualified Codes: S92.902A - Unspecified fracture of left foot, initial encounter for closed fracture (2) Avulsion fracture of ankle: Encounter type: initial encounter Fracture type: closed Laterality: right Qualified Codes: S82.891A - Other fracture of right lower leg, initial encounter for closed fracture BENNIE BRANCH CLAY HOISTER Aug 16, 2018 11:25
[2018-08-16] MEDS: WARFARIN SOD 5 MG TAB PO SCH (12:17)
== END 2018-08-16 11:19 | disposition home or self-care (01) ==
LOC: ER 12:34 → INTOOBSV 15:17 → MED 15:17
PROVIDERS: ADMIT Internal Medicine; ATTEND Internal Medicine
DX: S92.902A Unspecified fracture of left foot, initial encounter for closed fracture (principal); F03.90 Unspecified dementia, unspecified severity, without behavioral disturbance, psychotic disturbance, mood disturbance, and anxiety; S82.891A Other fracture of right lower leg, initial encounter for closed fracture; I48.2 Chronic atrial fibrillation; I25.10 Atherosclerotic heart disease of native coronary artery without angina pectoris
CPT/HCPCS: 36415; 70450; 72100; 72125; 73610; 73630; 73700; 81001; 85025; 85610; 87088; 97161; 97530; 99284; A9270; G0378; J2270; L1930; 82040; 82247; 82310; 82374; 82435; 82565; 82947; 84075; 84132; 84155; 84295; 84450; 84460; 84520

== ENCOUNTER 2018-09-01 17:04 | Inpatient (IN) | payer MEDICARE, BC ==
[2018-08-14 10:14] VITALS: Wt 53.5 kg
[~2018-09-01 17:04] MED LIST changes: -CEFU250T11 PO; -CITA-145 PO; -IBUP-136 PO; -QUET25TA30 PO; -QUET50TA21 PO; -WARF-1 PO; -WARF2.5T11 PO
[2018-09-01] MEDS ORDERED: OLANZapine 10 MG VIAL IM ONLY ONE (17:10)
[2018-09-01] MEDS ORDERED: WATER STERILE 10 ML VIAL IM ONLY ONE (17:10)
--- NOTE | 2018-09-01 17:37 | ER Report ---
History and Physical Time Seen By MD: 17:37 HPI/ROS CHIEF COMPLAINT: Altered mental status, aggressive HISTORY OF PRESENT ILLNESS: 88-year-old female patient presents to emergency room with complaint of altered mental status and aggression. Patient is a resident of [facility]. She has a long-standing history of dementia. Last month she did have a fall and broke her left foot and has an avulsion fracture of the right medial malleolus. Patient was admitted here, discharged home. She did have another fall in the middle night at which time I felt that she needed to have 24-hour care was placed in [facility]. Patient had been doing well up until approximately 2 days ago. At which time she's been having worsening confusion, as well as acting out. They referred her to emergency room for evaluation and possible admission to behavioral health. REVIEW OF SYSTEMS: Respiratory: No cough, no dyspnea. Cardiovascular: No chest pain, no palpitations. Gastrointestinal: No vomiting, no abdominal pain. Musculoskeletal: As noted above Allergies: Coded Allergies: phenazopyridine (Verified Allergy, Unknown, 08/13/18) Home Meds Active Scripts Prazosin Hcl (PRAZOSIN HCL) 1 Mg Capsule, 1 CAP PO QHS, #30 CAPSULE 0 Refills Prov:SEAN MONTEJO APRN AQUATIC PHYSIOTHERAPIST-C 09/01/18 Polyethylene Glycol 3350 (MIRALAX) 17 Gm Powd.pack, 17 GM PO QDAY for 90 Days, #90 PKT 4 Refills HOLD For Loose Stools Prov:SAMIR BRANTLEY MD 08/29/18 Trazodone Hcl (TRAZODONE HCL) 50 Mg Tablet, 1 TAB PO QHS for 30 Days, #30 TAB Prov:SAMIR BRANTLEY MD 08/29/18 Oxycodone Hcl (OXYCODONE HCL) 5 Mg Tablet, 0.5-1 TAB PO TID PRN for pain, #30 TAB Prov:SAMIR BRANTLEY MD 08/29/18 Reported Medications Ibuprofen (IBUPROFEN) 200 Mg Capsule, 1-2 CAP PO Q6H, CAPSULE 09/01/18 Citalopram Hydrobromide (CITALOPRAM HBR) 20 Mg Tablet, 10 MG PO QHS, #5 TAB 09/01/18 Calcium Carbonate/Vitamin D3 (Caltrate 600 + D Soft Chew Tab) 1 Each Tab.chew, 1 TAB.CHEW PO DAILY 10/12/17 Acetaminophen 500 Mg Tab (ACETAMINOPHEN EXTRA STRENGTH) 500 Mg Tablet, 2 TAB PO Q8H PRN for PAIN, TAB 10/12/17 Metoprolol Tartrate (METOPROLOL TARTRATE) 50 Mg Tab, 1 TAB PO BID 09/12/17 Warfarin Sodium (WARFARIN SODIUM) 5 Mg Tablet, 5 MG PO MWF 5mg Other 2.5, TAB take 1 tab po M//F, 0.5 tab po //Tue/Sun 02/25/17 Discontinued Reported Medications Loperamide HCl (Imodium A-D) 2 Mg Capsule, 1-2 CAP PO PRN PRN for DIARRHEA 08/22/18 Calcium Carbonate/Mag Hydrox (ANTACID CHEWABLE TABLET) 1 Each Tab.chew, 2 TAB PO Q2H PRN for prn, TAB.CHEW 08/22/18 Mag Hydrox/Aluminum Hyd/Simeth (Maalox Advanced Suspension) 200 Mg-200 Mg-20 Mg/5 Ml Oral.susp, 15 ML PO PRN 08/22/18 Aspirin (ASPIRIN) 325 Mg Tablet, 1 TAB PO ONCE PRN for CHEST PAIN, TAB 08/22/18 Guaifenesin/Dextromethorphan (Robitussin Cough-Chest Dm Liq) 50 Mg-5 Mg/5 Ml Liquid, 5 ML PO Q4-6H PRN for COUGH 08/22/18 Discontinued Scripts Citalopram Hydrobromide (CITALOPRAM HBR) 10 Mg Tablet, 10 MG PO QDAY for 90 Days, #90 TAB Prov:SAMIR BRANTLEY MD 08/28/18 Oxycodone Hcl (OXYCODONE HCL) 5 Mg Tablet, 5 MG PO BID PRN for pain, #30 TAB Prov:SAMIR BRANTLEY MD 08/22/18 Past Medical/Surgical History Patient has a past medical history of dementia, A. fib, hypertension, reflux, arthritis, osteoporosis, coccyx fracture, patella fracture. Patient has a surgical history of angioplasty, hysterectomy, back fusion. Patient has a family medical history of cancer. Reviewed Nurses Notes: Yes Hx Smoking: Yes (30 years ago) Smoking Status: Former Smoker Hx Substance Use Disorder: No Hx Alcohol Use: No Constitutional Vital Sign - Last 24 Hours 09/01/18 09/01/18 09/01/18 09/01/18 18:15 18:30 18:45 18:50 Pulse 66 67 75 ??? Pulse Ox 93 93 92 93 O2 Delivery Room Air 09/01/18 09/01/18 09/01/18 09/01/18 19:20 19:35 19:40 20:10 Pulse 75 68 73 67 Pulse Ox 91 89 96 96 09/01/18 09/01/18 09/01/18 09/01/18 20:25 20:40 20:55 21:10 Pulse 69 65 67 65 Pulse Ox 99 100 94 97 09/01/18 21:25 Pulse 67 Pulse Ox 97 Physical Exam General Appearance: The patient is alert, has no immediate need for airway protection and no current signs of toxicity. Respiratory: Chest is non tender, lungs are clear to auscultation. Cardiac: regular rate and rhythm Gastrointestinal: Abdomen is soft and non tender, no masses, bowel sounds normal. Musculoskeletal: Neck: Neck is supple and non tender. Extremities have full range of motion and are non tender. Skin: No rashes or lesions. Neuro: Patient is pleasantly confused, she is not able to recall where she is at. Son is at bedside which seems to help. DIFFERENTIAL DIAGNOSIS: After history and physical exam differential diagnosis was considered for fracture, urinary tract infection, confusion, worsening dementia. Medical Decision Making Data Points Result Diagram: 09/01/18 1825 09/01/18 1825 Laboratory Hematology Test 09/01/18 18:25 09/01/18 18:58 Red Blood Count 3.64 M/uL (4.17-5.56) Mean Corpuscular Volume 101.4 fL (80.0-96.0) Mean Corpuscular Hemoglobin 33.7 pg (26.0-33.0) Mean Corpuscular Hemoglobin Concent 33.2 g/dL (32.0-36.0) Red Cell Distribution Width 13.0 % (11.5-14.5) Mean Platelet Volume 7.4 fL (7.2-11.1) Neutrophils (%) (Auto) 64.0 % (39.4-72.5) Lymphocytes (%) (Auto) 19.7 % (17.6-49.6) Monocytes (%) (Auto) 10.5 % (4.1-12.4) Eosinophils (%) (Auto) 5.0 % (0.4-6.7) Basophils (%) (Auto) 0.8 % (0.3-1.4) Nucleated RBC Relative Count (auto) 0.0 /100WBC Neutrophils # (Auto) 3.7 K/uL (2.0-7.4) Lymphocytes # (Auto) 1.1 K/uL (1.3-3.6) Monocytes # (Auto) 0.6 K/uL (0.3-1.0) Eosinophils # (Auto) 0.3 K/uL (0.0-0.5) Basophils # (Auto) 0.0 K/uL (0.0-0.1) Nucleated RBC Absolute Count (auto) 0.00 K/uL Peripheral Blood Smear No Y/N Sodium Level 137 mmol/L (137-145) Potassium Level 4.0 mmol/L (3.5-5.0) Chloride Level 103 mmol/L (98-107) Carbon Dioxide Level 27 mmol/L (22-31) Blood Urea Nitrogen 21 mg/dl (7-18) Creatinine 0.90 mg/dl (0.52-1.04) Glomerular Filtration Rate Calc 59.1 Random Glucose 94 mg/dl (75-110) Calcium Level 9.2 mg/dl (8.4-10.2) Magnesium Level 2.0 mg/dl (1.7-2.2) Total Bilirubin 0.8 mg/dl (0.2-1.3) Aspartate Amino Transf (AST/SGOT) 22 U/L (0-35) Alanine Aminotransferase (ALT/SGPT) 21 U/L (0-56) Alkaline Phosphatase 99 U/L (0-126) Total Protein 7.0 g/dl (6.3-8.2) Albumin 3.7 g/dl (3.5-5.0) Salicylates Level < 10 mg/L Salicylate Last Dose Date Unk Acetaminophen Level < 10 ug/ml Serum Alcohol < 10 mg/dl Urine Color Yellow Urine Clarity Turbid Urine pH 6.0 pH (4.8-9.5) Urine Specific [place] 1.009 Urine Protein 30 mg/dL (NEGATIVE) Urine Glucose (UA) Negative mg/dL (NEGATIVE) Urine Ketones Negative mg/dL (NEGATIVE) Urine Blood Small (NEGATIVE) Urine Nitrite Positive (NEGATIVE) Urine Bilirubin Negative (NEGATIVE) Urine Urobilinogen 1.0 mg/dL (0.2-1.9) Urine Leukocyte Esterase Large (NEGATIVE) Urine RBC None /HPF (0-2/HPF) Urine WBC 2819 /HPF (0-5/HPF) Urine WBC Clumps Many /HPF Urine Squamous Epithelial Cells None /LPF (</=FEW) Urine Bacteria Negative /HPF (NONE-FEW) Urine Mucus None /HPF (NONE-FEW) Urine Opiates Screen Negative Urine Barbiturates Screen Negative Ur Tricyclic Antidepressants Screen Negative Urine Phencyclidine Screen Negative Urine Amphetamines Screen Negative Urine Benzodiazepines Screen Negative Urine Cocaine Screen Negative Urine Cannabinoids Screen Negative Chemistry Test 09/01/18 18:25 09/01/18 18:58 White Blood Count 5.8 k/uL (4.5-11.0) Red Blood Count 3.64 M/uL (4.17-5.56) Hemoglobin 12.3 g/dL (12.0-16.0) Hematocrit 36.9 % (34.0-47.0) Mean Corpuscular Volume 101.4 fL (80.0-96.0) Mean Corpuscular Hemoglobin 33.7 pg (26.0-33.0) Mean Corpuscular Hemoglobin Concent 33.2 g/dL (32.0-36.0) Red Cell Distribution Width 13.0 % (11.5-14.5) Platelet Count 245 K/uL (150-450) Mean Platelet Volume 7.4 fL (7.2-11.1) Neutrophils (%) (Auto) 64.0 % (39.4-72.5) Lymphocytes (%) (Auto) 19.7 % (17.6-49.6) Monocytes (%) (Auto) 10.5 % (4.1-12.4) Eosinophils (%) (Auto) 5.0 % (0.4-6.7) Basophils (%) (Auto) 0.8 % (0.3-1.4) Nucleated RBC Relative Count (auto) 0.0 /100WBC Neutrophils # (Auto) 3.7 K/uL (2.0-7.4) Lymphocytes # (Auto) 1.1 K/uL (1.3-3.6) Monocytes # (Auto) 0.6 K/uL (0.3-1.0) Eosinophils # (Auto) 0.3 K/uL (0.0-0.5) Basophils # (Auto) 0.0 K/uL (0.0-0.1) Nucleated RBC Absolute Count (auto) 0.00 K/uL Peripheral Blood Smear No Y/N Glomerular Filtration Rate Calc 59.1 Calcium Level 9.2 mg/dl (8.4-10.2) Magnesium Level 2.0 mg/dl (1.7-2.2) Total Bilirubin 0.8 mg/dl (0.2-1.3) Aspartate Amino Transf (AST/SGOT) 22 U/L (0-35) Alanine Aminotransferase (ALT/SGPT) 21 U/L (0-56) Alkaline Phosphatase 99 U/L (0-126) Total Protein 7.0 g/dl (6.3-8.2) Albumin 3.7 g/dl (3.5-5.0) Salicylates Level < 10 mg/L Salicylate Last Dose Date Unk Acetaminophen Level < 10 ug/ml Serum Alcohol < 10 mg/dl Urine Color Yellow Urine Clarity Turbid Urine pH 6.0 pH (4.8-9.5) Urine Specific [place] 1.009 Urine Protein 30 mg/dL (NEGATIVE) Urine Glucose (UA) Negative mg/dL (NEGATIVE) Urine Ketones Negative mg/dL (NEGATIVE) Urine Blood Small (NEGATIVE) Urine Nitrite Positive (NEGATIVE) Urine Bilirubin Negative (NEGATIVE) Urine Urobilinogen 1.0 mg/dL (0.2-1.9) Urine Leukocyte Esterase Large (NEGATIVE) Urine RBC None /HPF (0-2/HPF) Urine WBC 2819 /HPF (0-5/HPF) Urine WBC Clumps Many /HPF Urine Squamous Epithelial Cells None /LPF (</=FEW) Urine Bacteria Negative /HPF (NONE-FEW) Urine Mucus None /HPF (NONE-FEW) Urine Opiates Screen Negative Urine Barbiturates Screen Negative Ur Tricyclic Antidepressants Screen Negative Urine Phencyclidine Screen Negative Urine Amphetamines Screen Negative Urine Benzodiazepines Screen Negative Urine Cocaine Screen Negative Urine Cannabinoids Screen Negative Toxicology Test 09/01/18 18:25 09/01/18 18:58 Salicylates Level < 10 mg/L Salicylate Last Dose Date Unk Acetaminophen Level < 10 ug/ml Serum Alcohol < 10 mg/dl Urine Opiates Screen Negative Urine Barbiturates Screen Negative Ur Tricyclic Antidepressants Screen Negative Urine Phencyclidine Screen Negative Urine Amphetamines Screen Negative Urine Benzodiazepines Screen Negative Urine Cocaine Screen Negative Urine Cannabinoids Screen Negative Urinalysis Test 09/01/18 18:58 Urine Color Yellow Urine Clarity Turbid Urine pH 6.0 pH (4.8-9.5) Urine Specific [place] 1.009 Urine Protein 30 mg/dL (NEGATIVE) Urine Glucose (UA) Negative mg/dL (NEGATIVE) Urine Ketones Negative mg/dL (NEGATIVE) Urine Blood Small (NEGATIVE) Urine Nitrite Positive (NEGATIVE) Urine Bilirubin Negative (NEGATIVE) Urine Urobilinogen 1.0 mg/dL (0.2-1.9) Urine Leukocyte Esterase Large (NEGATIVE) Urine RBC None /HPF (0-2/HPF) Urine WBC 2819 /HPF (0-5/HPF) Urine WBC Clumps Many /HPF Urine Squamous Epithelial Cells None /LPF (</=FEW) Urine Bacteria Negative /HPF (NONE-FEW) Urine Mucus None /HPF (NONE-FEW) EKG/Imaging Imaging EXAMINATION: Left foot 3 views HISTORY: Foot fracture. COMPARISON: 08/13/2018. FINDINGS: Overlying cast material obscures fine bony detail. Multiple fractures of the left midfoot are again noted and appear grossly stable, with stable alignment. There are nondisplaced fractures traversing the bases of the second and third metatarsals, as well as a comminuted fracture of the cuboid. There is a mildly displaced fracture of the third metatarsal neck. The bones are diffusely osteopenic. No other new osseous findings. Diffuse soft tissue swelling. IMPRESSION: 1. Stable left foot fractures allowing for technical limitations of the exam with overlying cast material. This includes fractures of the second and third metatarsal bases, third metatarsal neck, and cuboid. 2. No new osseous findings. Report Dictated By: Jose Alberto Vega MD at 09/01/2018 7:17 PM Report E-Signed By: Jose Alberto Vega MD at 09/01/2018 7:26 PM ED Course/Re-evaluation ED Course Patient is admitted and examined, history and physical were obtained. Differential diagnoses were considered. On examination lungs are clear, heart is regular, abdomen is soft and nontender. Patient did have some confusion. Lab work for a behavioral health admission was done. Lab work was unremarkable except for urinalysis which showed a positive nitrites, large leukocytesterase and had 2800 white blood cells per high-power field. And x-rays done of the left foot which showed stable fractures. I discussed the findings with the patient's son. With patient not having an elevated white count, no fever. I did give him the option of getting started on oral antibiotics going home or being admitted. The son stated that he would prefer the patient be admitted stating that he would like for her to get better faster. I discussed the case with Dr. Marianne Lomeli, hospitalist, who came and evaluated the patient. He did agree to accept the patient for admission with diagnosis of urinary tract infection and d ementia. I discussed this with patient and her son and they verbalized understanding with plan. Decision to Disposition Date: Sep 01, 2018 Decision to Disposition Time: 21:00 Depart Departure Latest Vital Signs Vital Signs Date Time Temp Pulse Resp B/P (MAP) Pulse Ox O2 Delivery O2 Flow Rate FiO2 09/01/18 21:25 67 97 09/01/18 18:45 Room Air Impression: Primary Impression: UTI (urinary tract infection) Additional Impression: Dementia Condition: Condition Unchanged Disposition: Admitted from ER Referrals: SAMIR BRANTLEY MD (PCP) Problem Qualifiers Primary Impression: UTI (urinary tract infection) Urinary tract infection type: acute cystitis Hematuria presence: with hematuria Qualified Codes: N30.01 - Acute cystitis with hematuria Additional Impression: Dementia Dementia type: unspecified type Dementia behavioral disturbance: with be havioral disturbance Qualified Codes: F03.91 - Unspecified dementia with behavioral disturbance KEON WARD Sep 01, 2018 17:37
[2018-09-01 18:44] LABS: PLATELET COUNT, AUTOMATED 245 K/uL (150-450)
--- NOTE | 2018-09-01 19:29 | RADIOLOGY IMAGING REPORT ---
[place]AC[place] [facility] [place] NAME: Cass Mooney : 1930 MR: [id number] V: [id number] EXAM DATE: ORDERING PHYSICIAN: KEON WARD TECHNOLOGIST: Location: [facility] - [place] Patient: Cass Mooney : 1930 Visit/Account:[id number] Date of Sevice: 09/01/2018 EXAMINATION: Left foot 3 views HISTORY: Foot fracture. COMPARISON: 08/13/2018. FINDINGS: Overlying cast material obscures fine bony detail. Multiple fractures of the left midfoot are again noted and appear grossly stable, with stable alignme nt. There are nondisplaced fractures traversing the bases of the second and third metatarsals, as wel l as a comminuted fracture of the cuboid. There is a mildly displaced fracture of the third metatarsa l neck. The bones are diffusely osteopenic. No other new osseous findings. Diffuse soft tissue swelling. IMPRESSION: 1. Stable left foot fractures allowing for technical limitations of the exam with overlying cast mate rial. This includes fractures of the second and third metatarsal bases, third metatarsal neck, and cu boid. 2. No new osseous findings. Report Dictated By: Jose Alberto Vega MD at 09/01/2018 7:17 PM Report E-Signed By: Jose Alberto Vega MD at 09/01/2018 7:26 PM WSN:[id number]
[2018-09-01] MEDS ORDERED: ACETAMINOPHEN 500 MG TAB PO ONE (19:30)
[2018-09-01] MEDS ORDERED: cefTRIAXone(*) 1 GM VIAL 1 GM in NS(*) 0.9% 100 ML MINI-BAG 100 ML IVPB ONE (20:20)
[2018-09-01] MEDS ORDERED: IBUP-136 PO (20:36)
[2018-09-01] MEDS ORDERED: CITA-145 PO (20:36)
[2018-09-01] MEDS ORDERED: KETOROLAC 15 MG/ML VIAL IVP ONE (22:00)
[2018-09-01] MEDS ORDERED: INFLUENZA VIRUS VAC 0.5ML SYR IM ONLY ONE (22:25)
[2018-09-01] MEDS ORDERED: FLUSH 10 ML SYR IVP PRN (22:25)
--- NOTE | 2018-09-01 22:47 | History & Physical ---
History of Present Illness Chief Complaint agitation History of Present Illness 88F admitted with UTI, agitation. PMHx significant for severe dementia. Pt [facility] from [facility] after becoming more aggressive and agitated. Per report from facility was throwing objects. In ER she was agitated and IM Zyprexa was given. UTI found on evaluation but no other lab abnormalities or acute findings. Family report has become worse over last week. Discussed with son that UTI is unlikely to be the issue, also she was on opioid pain medications which we will hold. Suspect delirium from being in new facility and underlying dementia. History Problems: (1) Paroxysmal atrial fibrillation Status: Acute (2) CAD (coronary artery disease) Status: Chronic (3) Dementia Status: Chronic Home Meds Active Scripts Prazosin Hcl (PRAZOSIN HCL) 1 Mg Capsule, 1 CAP PO QHS, #30 CAPSULE 0 Refills Prov:SEAN MONTEJO APRN WORK ORDER CLERK-C 09/01/18 Polyethylene Glycol 3350 (MIRALAX) 17 Gm Powd.pack, 17 GM PO QDAY for 90 Days, #90 PKT 4 Refills HOLD For Loose Stools Prov:SAMIR BRANTLEY MD 08/29/18 Trazodone Hcl (TRAZODONE HCL) 50 Mg Tablet, 1 TAB PO QHS for 30 Days, #30 TAB Prov:SAMIR BRANTLEY MD 08/29/18 Oxycodone Hcl (OXYCODONE HCL) 5 Mg Tablet, 0.5-1 TAB PO TID PRN for pain, #30 TAB Prov:SAMIR BRANTLEY MD 08/29/18 Reported Medications Ibuprofen (IBUPROFEN) 200 Mg Capsule, 1-2 CAP PO Q6H, CAPSULE 09/01/18 Citalopram Hydrobromide (CITALOPRAM HBR) 20 Mg Tablet, 10 MG PO QHS, #5 TAB 09/01/18 Calcium Carbonate/Vitamin D3 (Caltrate 600 + D Soft Chew Tab) 1 Each Tab.chew, 1 TAB.CHEW PO DAILY 10/12/17 Acetaminophen 500 Mg Tab (ACETAMINOPHEN EXTRA STRENGTH) 500 Mg Tablet, 2 TAB PO Q8H PRN for PAIN, TAB 10/12/17 Metoprolol Tartrate (METOPROLOL TARTRATE) 50 Mg Tab, 1 TAB PO BID 09/12/17 Warfarin Sodium (WARFARIN SODIUM) 5 Mg Tablet, 5 MG PO MWF 5mg Other 2.5, TAB take 1 tab po M/W/, 0.5 tab po T//Sat/Sun 02/25/17 Discontinued Reported Medications Loperamide HCl (Imodium A-D) 2 Mg Capsule, 1-2 CAP PO PRN PRN for DIARRHEA 08/22/18 Calcium Carbonate/Mag Hydrox (ANTACID CHEWABLE TABLET) 1 Each Tab.chew, 2 TAB PO Q2H PRN for prn, TAB.CHEW 08/22/18 Mag Hydrox/Aluminum Hyd/Simeth (Maalox Advanced Suspension) 200 Mg-200 Mg-20 Mg/5 Ml Oral.susp, 15 ML PO PRN 08/22/18 Aspirin (ASPIRIN) 325 Mg Tablet, 1 TAB PO ONCE PRN for CHEST PAIN, TAB 08/22/18 Guaifenesin/Dextromethorphan (Robitussin Cough-Chest Dm Liq) 50 Mg-5 Mg/5 Ml Liquid, 5 ML PO Q4-6H PRN for COUGH 08/22/18 Discontinued Scripts Citalopram Hydrobromide (CITALOPRAM HBR) 10 Mg Tablet, 10 MG PO QDAY for 90 Days, #90 TAB Prov:SAMIR BRANTLEY MD 08/28/18 Oxycodone Hcl (OXYCODONE HCL) 5 Mg Tablet, 5 MG PO BID PRN for pain, #30 TAB Prov:SAMIR BRANTLEY MD 08/22/18 Allergies: Coded Allergies: phenazopyridine (Verified Allergy, Unknown, 08/13/18) Patient History: FH: heart failure MOTHER, , Age:85 Squamous cell carcinoma of skin CHILD Hx Smoking: Yes (30 years ago) Smoking Status: Former Smoker Caffeine Intake: Coffee Caffeine/Cups Per Day: 3-4 cups/day Hx Alcohol Use: No Hx Substance Use Disorder: No Social Drug Use: Never Review of Systems Other unable to obtain 2/2 mental status Exam Vital Signs Vital Signs Date Time Temp Pulse Resp B/P (MAP) Pulse Ox O2 Delivery O2 Flow Rate FiO2 09/01/18 22:23 111/87 (95) 09/01/18 22:15 70 91 09/01/18 18:45 Room Air General Appearance: No Acute Distress, Afebrile Neuro: No Gross deficits ENT: Normal Cardiovascular: Other (irregularly irregular) Respiratory: Clear to Auscultation GI: Abd Soft and Non-Tender Medical Decision Making Data Points Result Diagram: 09/01/18 18209/01/181824 Assessment and Plan Problems: (1) Aggression Assessment & Plan: Will stop opioid and treat UTI. Unlikely the cause of aggression. More likely some delirium involved with underlying dementia. Begin scheduled 12.5 quetiapine. (2) UTI (urinary tract infection) Status: Acute Assessment & Plan: Begin Rocephin, unlikely this is cause of aggression as appears to be simple cystitis. (3) Paroxysmal atrial fibrillation Status: Acute Assessment & Plan: Continue warfarin. (4) Dementia Status: Chronic Assessment & Plan: Severe, will need placement in some sort of memory care unit. (5) Fracture, foot Assessment & Plan: Fall risk due to non-weight bearing status and severe dementia. Venous Thromboembolism Antithrombotics Is Pt On Any Antithrombotics?: Yes Problem Qualifiers (1) UTI (urinary tract infection): Urinary tract infection type: acute cystitis (2) Dementia: Dementia type: unspecified type Dementia behavioral disturbance: with behavioral disturbance Qualified Codes: F03.91 - Unspecified dementia with behavioral disturbance FRANK MILAN DO Sep 01, 2018 22:47
[2018-09-01 22:50] VITALS: BP 120/57
[2018-09-02 09:10] VITALS: BP 156/73
--- NOTE | 2018-09-02 10:07 | Hospitalist Progress Note ---
Subjective Progress Notes Subjective This patient was admitted for a urinary infection. She had no acute events overnight. Patient Complains of: Cardiovascular: No: Chest Pain Respiratory: No: Shortness of Breath Physical Exam Vital Signs Date Time Temp Pulse Resp B/P (MAP) Pulse Ox O2 Delivery O2 Flow Rate FiO2 09/02/18 09:10 97.8 78 18 156/73 (100) 91 Nasal Cannula 2.0 Intake and Output 09/02/18 06:59 Intake Total 100 ml Balance 100 ml Intake IV Total 100 ml # Voids 1 Cardiovascular: Regular Rate and Rhythm Respiratory: Clear to Auscultation Result Diagram: 09/01/18182409/01/181824 Assessment and Plan Problems: (1) Aggression Assessment & Plan: She has been started on scheduled quetiapine. (2) UTI (urinary tract infection) Status: Acute Assessment & Plan: She is afebrile and her WBC is not elevated. She did have leukocytes in the urine. She was started on empiric treatment with ceftriaxone. A urine culture is showing a gram negative naa. (3) Paroxysmal atrial fibrillation Status: Acute Assessment & Plan: She is on chronic treatment with warfarin. A daily INR has been ordered. (4) Dementia Status: Chronic Assessment & Plan: Severe, will need placement in some sort of memory care unit. (5) Fracture, foot Assessment & Plan: Fall risk due to non-weight bearing status and severe dementia. Exam Sepsis Risk: No Definite Risk Problem Qualifiers (1) UTI (urinary tract infection): Urinary tract infection type: acute cystitis (2) Dementia: Dementia type: unspecified type Dementia behavioral disturbance: with behavioral disturbance Qualified Codes: F03.91 - Unspecified dementia with behavioral disturbance KOTA ZIMMER DO Sep 02, 2018 10:07
[2018-09-02] MEDS: IBUPROFEN 200 MG TAB PO PRN ×2 (10:43→23:40)
[2018-09-02] MEDS: METOPROLOL TART 50 MG TAB PO SCH ×3 (10:43→22:00)
[2018-09-02] MEDS: CITALOPRAM HYDROBROM 20 MG TAB PO SCH (10:44)
[2018-09-02] MEDS: QUEtiapine FUM 25 MG TAB PO SCH ×2 (10:44→20:39)
[2018-09-02 10:49] LABS: INR 3.67
[2018-09-02] MEDS ORDERED: WARFARIN SOD 2.5 MG TAB PO SCH (13:00)
--- NOTE | 2018-09-02 13:11 | NUR ---
Physical Therapy Impression Pt lives at [facility] and family is hoping Pt will be able to return. Pt fell approximately 1 month ago and has been NWB to B LEs since and has been using a wheelchair for mobility. Pt is now WBAT to B LEs and is to use a walking boot on L LE when OOB. Walking boot delivered and family instructed on its use. Pt's family also instructed in appropriate walker for Pt. Physical Therapy Goals 1. Min A bed mobility. 2. Min A transfers. 3. Min A gait x 20' with RW. Patient's Goals
--- NOTE | 2018-09-02 14:11 | NUR ---
Physical Therapy Impression Pt seen from [id number] with and without family present in efforts to don L LE walking boot per MD order and assist with transfer to commode. Pt confused, disagreeable with all instructions, and unable to follow any directions. Pt did transfer SBA from bed<>commode without walking boot to urinate. PT and nurse unable to don gait belt or walking boot due to Pt becoming combative if we would get too close. Pt without any indication of pain during transfer. Pt is not appropriate for skilled PT at this time and will be discharged from PT services. If Pt is appropriate in the future, please re-consult. Physical Therapy Goals 1. Min A bed mobility. 2. Min A transfers. 3. Min A gait x 20' with RW. Patient's Goals
[2018-09-02] MEDS: ACETAMINOPHEN 325 MG TAB PO PRN ×3 (14:14→22:01)
[2018-09-02 18:48] VITALS: BP 117/55
[2018-09-02] MEDS: OLANZapine 10 MG VIAL IM ONLY PRN (19:16)
[2018-09-02] MEDS: WATER STERILE 10 ML VIAL IM ONLY PRN (19:17)
[2018-09-02] MEDS ORDERED: cefTRIAXone 1 GM VIAL IVP SCH (20:00)
[2018-09-02] MEDS: cefTRIAXone 1 GM VIAL IVP SCH ×2 (20:30→21:38)
[2018-09-02] MEDS: PRAZOSIN HCL 1 MG CAP PO SCH ×2 (20:38→22:01)
[2018-09-03 06:03] LABS: INR 3.5
--- NOTE | 2018-09-03 09:03 | Hospitalist Progress Note ---
Subjective Progress Notes Subjective The patient complains of some low back pain. No other complaints. Physical Exam Vital Signs Date Time Temp Pulse Resp B/P (MAP) Pulse Ox O2 Delivery O2 Flow Rate FiO2 09/03/18 05:46 55 18 Nasal Cannula 1.0 09/03/18 04:44 83 09/02/18 18:48 97.6 Intake and Output 09/03/18 07:00 Intake Total 120 ml Output Total 300 ml Balance -180 ml Intake Oral 120 ml Output Urine Total 300 ml # Voids 2 General Appearance: Alert, Awake, No Acute Distress Cardiovascular: Regular Rate and Rhythm (With occasional ectopy.), No Edema Respiratory: No Respiratory Distress, Clear to Auscultation GI: Soft and Non-Tender Extremities: Warm, Perfused Integumentary: Generalized Fragile Skin Result Diagram: 09/01/18182409/01/181824 Assessment and Plan Problems: (1) Aggression Assessment & Plan: She has been started on scheduled quetiapine. (2) UTI (urinary tract infection) Status: Acute Assessment & Plan: She is afebrile and her WBC is not elevated. She did have leukocytes in the urine. She was started on empiric treatment with ceftriaxone. A urine culture is growing pansensitive E. coli. Continue ceftriaxone IV as she does not reliably take oral medications. (3) Paroxysmal atrial fibrillation Status: Acute Assessment & Plan: She is on chronic treatment with warfarin. A daily INR has been ordered. (4) Dementia Status: Chronic Assessment & Plan: Severe, will need placement in some sort of memory care unit. Review of EMR shows a relatively low B12 level several years ago. MCV is elevated. Will repeat B12 and also a methylmalonic acid level. (5) Fracture, foot Assessment & Plan: Fall risk due to non-weight bearing status and severe dementia. Time Spent on Plan of Care: < 30 min Exam Sepsis Risk: No Definite Risk Problem Qualifiers (1) UTI (urinary tract infection): Urinary tract infection type: acute cystitis (2) Dementia: Dementia type: unspecified type Dementia behavioral disturbance: with behavi oral disturbance Qualified Codes: F03.91 - Unspecified dementia with behavior al disturbance FLORENCIA SALOMON MD Sep 03, 2018 09:03
[2018-09-03 09:35] VITALS: BP 94/43
--- NOTE | 2018-09-03 10:39 | Antimicrobial Stewardship ---
Antimicrobial Time Out Antimicrobial Stewardship MD Service: Hospitalist Indications: UTI Antimicrobial Used Rocephin 1 gm IVP q 24 hours Start Date: Sep 01, 2018 Culture Results: Yes (Urine shows pansensitive e coli) Eligible for PO Conversion Eligable for PO Conversion: No (Patient does not take po well) FLORENCIA ZAMUDIO Sep 03, 2018 10:39
[2018-09-03] MEDS: QUEtiapine FUM 25 MG TAB PO SCH ×2 (10:51→19:15)
[2018-09-03] MEDS: CITALOPRAM HYDROBROM 20 MG TAB PO SCH (10:51)
[2018-09-03] MEDS: IBUPROFEN 200 MG TAB PO PRN ×2 (10:51→21:56)
[2018-09-03] MEDS: WARFARIN SOD 2.5 MG TAB PO SCH (13:36)
[2018-09-03 15:55] VITALS: BP 106/62
[2018-09-03 19:12] VITALS: BP 102/55
[2018-09-03] MEDS: PRAZOSIN HCL 1 MG CAP PO SCH (19:15)
[2018-09-03] MEDS: CEFUROXIME AXETIL 250 MG TAB PO SCH (19:15)
[2018-09-03] MEDS: ACETAMINOPHEN 325 MG TAB PO PRN (19:15)
[2018-09-03] MEDS: METOPROLOL TART 50 MG TAB PO SCH (21:00)
[2018-09-04] MEDS: WATER STERILE 10 ML VIAL IM ONLY PRN (05:46)
[2018-09-04] MEDS: OLANZapine 10 MG VIAL IM ONLY PRN (05:46)
[2018-09-04 05:51] LABS: INR 3.32
[2018-09-04 07:54] VITALS: BP 120/65
[2018-09-04] MEDS ORDERED: CEFU250T11 PO (08:14)
[2018-09-04] MEDS ORDERED: WARF-1 PO (08:14)
[2018-09-04] MEDS ORDERED: WARF2.5T11 PO (08:14)
--- NOTE | 2018-09-04 08:20 | Hospitalist Depart ---
Discharge Summary Reason for Hosp/Final Diag: (1) Aggression Hospital Course & Plan: She has been started on scheduled quetiapine. (2) UTI (urinary tract infection) Status: Acute Hospital Course & Plan: She is afebrile and her WBC is not elevated. She did have leukocytes in the urine. She was started on empiric treatment with ceftriaxone. A urine culture is growing pansensitive E. coli. She will be transitioned to Ceftin twice daily for 5 additional days. (3) Paroxysmal atrial fibrillation Status: Acute Hospital Course & Plan: She is on chronic treatment with warfarin. INR has been elevated throughout admission. Adjusted warfarin dose. She will get INR Tuesday. (4) Dementia Status: Chronic Hospital Course & Plan: Severe, will need placement in some sort of memory care unit. Review of EMR shows a relatively low B12 level several years ago. MCV is elevated. Will repeat B12 and also a methylmalonic acid level. She will follow up with PCP for results. (5) Fracture, foot Hospital Course & Plan: Fall risk due to non-weight bearing status and severe dementia. Departure Latest Vital Signs Vital Signs 09/03/18 09/03/18 09/04/18 09:42 19:12 07:54 Temp 98.1 Pulse 92 Resp 16 B/P (MAP) 120/65 (83) Pulse Ox 89 O2 Flow Rate 1.0 Weight (Pounds): 118 Result Diagram: 09/01/18182409/01/181824 Condition: Improved Discharge: Assisted Living Discharge Instructions Home Meds Active Scripts Cefuroxime Axetil (CEFUROXIME) 250 Mg Tablet, 250 MG PO BID, #10 TAB Prov:BENNIE BRANCH CORPORATE REAL ESTATE MANAGER 09/04/18 Warfarin Sodium (WARFARIN SODIUM) 2.5 Mg Tablet, 2.5 MG PO SuTuWeThSa, #30 TAB Prov:BENNIE BRANCH CORPORATE REAL ESTATE MANAGER 09/04/18 Warfarin Sodium (COUMADIN) 5 Mg Tablet, 5 MG PO MoFr, #30 TAB Prov:BENNIE BRANCH CORPORATE REAL ESTATE MANAGER 09/04/18 Prazosin Hcl (PRAZOSIN HCL) 1 Mg Capsule, 1 CAP PO QHS, #30 CAPSULE 0 Refills Prov:SEAN MONTEJO APRN CORPORATE REAL ESTATE MANAGER-C 09/01/18 Polyethylene Glycol 3350 (MIRALAX) 17 Gm Powd.pack, 17 GM PO QDAY for 90 Days, #90 PKT 4 Refills HOLD For Loose Stools Prov:SAMIR BRANTLEY MD 08/29/18 Trazodone Hcl (TRAZODONE HCL) 50 Mg Tablet, 1 TAB PO QHS for 30 Days, #30 TAB Prov:SAMIR BRANTLEY MD 08/29/18 Oxycodone Hcl (OXYCODONE HCL) 5 Mg Tablet, 0.5-1 TAB PO TID PRN for pain, #30 TAB Prov:SAMIR BRANTLEY MD 08/29/18 Reported Medications Ibuprofen (IBUPROFEN) 200 Mg Capsule, 1-2 CAP PO Q6H, CAPSULE 09/01/18 Citalopram Hydrobromide (CITALOPRAM HBR) 20 Mg Tablet, 10 MG PO QHS, #5 TAB 09/01/18 Calcium Carbonate/Vitamin D3 (Caltrate 600 + D Soft Chew Tab) 1 Each Tab.chew, 1 TAB.CHEW PO DAILY 10/12/17 Acetaminophen 500 Mg Tab (ACETAMINOPHEN EXTRA STRENGTH) 500 Mg Tablet, 2 TAB PO Q8H PRN for PAIN, TAB 10/12/17 Metoprolol Tartrate (METOPROLOL TARTRATE) 50 Mg Tab, 1 TAB PO BID 09/12/17 Discontinued Reported Medications Warfarin Sodium (WARFARIN SODIUM) 5 Mg Tablet, 5 MG PO MWF 5mg Other 2.5, TAB take 1 tab po //, 0.5 tab po T//Sat/Sun 02/25/17 Loperamide HCl (Imodium A-D) 2 Mg Capsule, 1-2 CAP PO PRN PRN for DIARRHEA 08/22/18 Calcium Carbonate/Mag Hydrox (ANTACID CHEWABLE TABLET) 1 Each Tab.chew, 2 TAB PO Q2H PRN for prn, TAB.CHEW 08/22/18 Mag Hydrox/Aluminum Hyd/Simeth (Maalox Advanced Suspension) 200 Mg-200 Mg-20 Mg/5 Ml Oral.susp, 15 ML PO PRN 08/22/18 Aspirin (ASPIRIN) 325 Mg Tablet, 1 TAB PO ONCE PRN for CHEST PAIN, TAB 08/22/18 Guaifenesin/Dextromethorphan (Robitussin Cough-Chest Dm Liq) 50 Mg-5 Mg/5 Ml Liquid, 5 ML PO Q4-6H PRN for COUGH 08/22/18 Discontinued Scripts Citalopram Hydrobromide (CITALOPRAM HBR) 10 Mg Tablet, 10 MG PO QDAY for 90 Days, #90 TAB Prov:SAMIR BRANTLEY MD 08/28/18 Oxycodone Hcl (OXYCODONE HCL) 5 Mg Tablet, 5 MG PO BID PRN for pain, #30 TAB Prov:SAMIR BRANTLEY MD 08/22/18 Diet: Regular Activity: As Tolerated, With Walker Special Instructions: Follow up with Primary Care Provider in one week. Get INR checked on Tuesday. Complete antibiotics as directed for UTI. Copies to: SAMIR BRANTLEY MD ; Venous Thromboembolism Antithrombotics Is Pt On Any Antithrombotics?: Yes Problem Qualifiers (1) UTI (urinary tract infection): Urinary tract infection type: acute cystitis (2) Dementia: Dementia type: unspecified type Dementia behavioral disturbance: with behavioral disturbance Qualified Codes: F03.91 - Unspecified dementia with behavioral disturbance BENNIE BRANCHP Sep 04, 2018 08:20
[2018-09-04] MEDS: QUEtiapine FUM 25 MG TAB PO SCH ×2 (08:29→20:33)
[2018-09-04] MEDS: CEFUROXIME AXETIL 250 MG TAB PO SCH ×2 (08:30→20:33)
[2018-09-04] MEDS: IBUPROFEN 200 MG TAB PO PRN ×2 (08:30→23:46)
[2018-09-04] MEDS: METOPROLOL TART 50 MG TAB PO SCH ×2 (08:30→20:31)
[2018-09-04] MEDS: CITALOPRAM HYDROBROM 20 MG TAB PO SCH (08:30)
--- NOTE | 2018-09-04 10:28 | RADIOLOGY IMAGING REPORT ---
FACILITY: [facility] PATIENT NAME: Cass Mooney : 1930 MR: [id number] V: [id number] EXAM DATE: ORDERING PHYSICIAN: BENNIE BRANCH TECHNOLOGIST: Location: [facility] Patient: Cass Mooney : 1930 Visit/Account:[id number] Date of Sevice: 09/04/[address] scan without contrast HISTORY: Fall 3 days ago COMPARISONS: August 13, 2018 TECHNIQUE: Non-contrast head CT was performed with sagittal and coronal reformations. One of the following dose optimization techniques was utilized in the performance of this exam: autom ated exposure control; adjustment of the mA and/or kV according to patient size; or use of iterative reconstruction technique. Specific details can be referenced in the facility's radiology CT exam ope rational policy. FINDINGS: There is no intracranial hemorrhage, hydrocephalus or midline shift. The basal cisterns, cody-white differentiation, and convexity sulci are maintained. Cataract postsurgical change noted. Unchanged pa tchy white matter hypoattenuation. Clear mastoid air cells. Small volume left and trace right maxillary sinus fluid is new. No fracture identified. IMPRESSION: No acute intracranial abnormality. Moderate to severe unchanged chronic small vessel ischemic change. Small volume left and trace volume right new maxillary sinus fluid. Report Dictated By: Raheem Winston MD at 09/04/2018 10:19 AM Report E-Signed By: Raheem Winston MD at 09/04/2018 10:23 AM WSN:[id number]
--- NOTE | 2018-09-04 12:17 | Psychiatric Consult ---
History of Present Illness Requesting Physician Chana Rodarte Reason for Consult: Psychiatric Illness Reason for Consult change in mental status History of Present Illness 88 year old woman residing at [facility] with history of dementia, admitted due to change in mental status 4 days ago, found to have UTI and being treated for same. Nevertheless change in mental status has not improved/resolved. She has been paranoid, aggressive, agitated, not sleeping, pressured in her speech. Pt seen and history obtained from [place], her [id number]. Chronology: -- pt never had previous psych hx, never on meds, has dementia, was living at home (with help), would call her son 60 times per day, anxiously asking "where are you, where's my dog..?" -- started citalopram 10 mg for anxiety about 08/06. -- "It was amazing, within one day we thought we had her back, only called 4 times, less distressed." -- pt fell on 08/13, multiple fx's in L foot, sprained rt ankle. -- admitted to [facility], then transferred to [facility] on 08/16, mental status still at baseline. -- at [facility], "started getting pallavi mean" around 08/20. This coincided with c/o foot pain, and oxycodone was started. -- progressively more agitated, irritable, very poor sleep, accusing her son "You killed your Dad, You're a liar..." -- trazodone added 4/4 to help with sleep. -- prazosin added 4/5 am (though not taken till hospitalized later that afternoon) -- at residential had major escalation Tuesday, yelling, throwing things, aggressive, agitated, hitting, pinching. -- Admitted and found to have UTI, started abx, started seroquel 12.5 mg BID, oxycodone DC'd, trazodone DC'd, but mental status still not improving. Today pt is in bed, confused, disoriented, accusatory at times, laughed at me later, wide awake, pulled her shirt up exposing breasts once, quite hypertalkative, does not appear to be hallucinating. Patient Refused Consult: No [facility] - Subjective Progress Notes Subjective "You unlock that door honey, or I'll show you!" Suicidal Ideation: None Homicidal Ideation: None [facility] - Objective Mental Status Exam General Appearance: Psychomotor Agitation Speech: Rambling, Other (pressured, loud) Mood: Hyperthymic Affect: Agitated, Other (labile) Thought Process: Loose Associations Thought Content: No Suicidal Ideation, No Homicidal Ideation, No Delusions, No Auditory Halllucinations, No Visual Hallucinations, No Thought Broadcasting, No Ideas of Reference, No Obsessions, No Compulsions; Other (paranoid, confabulating) Sensorium: Clear Cognition: Alert & Oriented-Person, Alert & Oriented-Place ("hospital"); No Alert & Oriented-Time, No Rehum-Uubodjjz-Kdywkhqav, No Other Memory: Other (dementia at baseline, not cooperative with testing due to delerium) Intelligence: Average Insight Judgment: Poor Result Diagram: 09/01/18182409/01/181824 [facility] Assessment and Plan Ppxc-[id number] Encounter Date: Sep 04, 2018 [id number] Encounter Time: 11:30 Follow Up Testing Recommended: No Problems: (1) Delirium due to multiple etiologies Assessment & Plan: Delerium likely fueled by citalopram with antidepressant- induced agitation, insomnia. She "looks manic" though this is not true asim, but likely multifactorial including citalopram, trazodone, pain meds, recent fracture, UTI, change in environment. Recommend DC citalopram, DC prazosin, continue OFF trazodone. Increase seroquel to 12.5 mg q am and 25 mg q HS to treat delerium, help get sleep cycle back. She will hopefully improve fairly quickly once off citalopram, but will need to be monitored inpatient for at least next 24 hours to make sure mental status returns to baseline, before returning to spring. She should stay on seroquel for one to two weeks after she returns to baseline mental status. (2) Dementia Status: Chronic Treatment Recommendation: Other Problem Qualifiers (1) Dementia: Dementia type: unspecified type Dementia behavioral disturbance: with behavioral disturbance Qualified Codes: F03.91 - Unspecified dementia with behavioral disturbance SANTOS MAURICE MD Sep 04, 2018 12:17
[2018-09-04] MEDS ORDERED: WARFARIN SOD 5 MG TAB PO SCH ×2 (13:00)
--- NOTE | 2018-09-04 14:00 | NUR ---
ST Encounter Orders received. Per chart review and discussion with RN, the pt remains highly agitated, inappropriate. Psych has been consulted. Will hold formal cognitive linguistic evaluation until 09/05 pending response to recent modification in medication regimen. Thank you for this referral.
[2018-09-04 15:26] VITALS: BP 115/57
[2018-09-04 19:21] VITALS: BP 110/85
[2018-09-04] MEDS: ACETAMINOPHEN 325 MG TAB PO PRN (21:06)
[2018-09-05] MEDS: ACETAMINOPHEN 325 MG TAB PO PRN ×3 (03:21→16:01)
[2018-09-05] MEDS: IBUPROFEN 200 MG TAB PO PRN ×3 (05:53→19:28)
[2018-09-05 07:56] VITALS: BP 135/80
[2018-09-05] MEDS: CEFUROXIME AXETIL 250 MG TAB PO SCH ×2 (09:08→21:11)
[2018-09-05] MEDS: METOPROLOL TART 50 MG TAB PO SCH ×2 (09:08→21:00)
[2018-09-05] MEDS: QUEtiapine FUM 25 MG TAB PO SCH ×2 (09:09→21:11)
[2018-09-05 09:18] VITALS: BP 109/69
--- NOTE | 2018-09-05 11:14 | SPEECH INITIAL EVALUATION ---
COGNITIVE LINGUISTIC cyanide case hardener: Kalyn Damon MS, CCC-PRODUCT SAFETY HEAD Type of Assessment: Cognitive linguistic assessment Patient: Cass Mooney : [birth year], 88yo Evaluation Date: 09/05/2018 BACKGROUND The patient is an 88 year old female admitted [facility]18 from [facility] unit with increasing aggression and agitation. Pt was found to have a UTI, also with underlying diagnosis of dementia. The pt remained agitated, paranoid, and aggressive following hospital admission despite treatment for UTI. Psych was consulted on 09/04/18 with subsequent modifications to medication regimen, including discontinuation of citalopram, praxosin, and trazodone, with additional initiation of seroquel to treat delirium and to help restore sleep cycle. Staff reports reduction in agitation/aggression over the past 24 hours following psych consult. An ST assessment was ordered to analyze cognitive linguistic status to support development of discharge recommendations with hopeful return to [facility]. Primary Medical Diagnosis: delirium due to multiple etiologies Past Medical Hx: dementia Pain Scale (0-10): patient w/ no reports of pain. LOC / Participation: alert, generally cooperative, briefly agitated with single instance of elevated voice, rambling/tangential verbal output, disorganized thought processes/loose associations DYSPHAGIA Swallow status was briefly screened with trials of thin liquids, single bite of solid breakfast food. No overt signs of aspiration or indicators of dysphagia observed. RN not endorsing any concerns, has been tolerating medications without difficulty. COGNITIVE LINGUISTIC ASSESSMENT Pt presents with moderate to severe cognitive linguistic deficits, consistent with baseline dementia diagnosis and exacerbated by delirium. Affected domains include attention, temporal and situational orientation, immediate memory, short-term memory, thought organization, problem solving skills, and visuospatial skills. Pragmatic deficits also noted with inappropriate social behaviors. Higher-level cognitive linguistic impairments are further inferred. Pt seen at the bedside for cognitive linguistic analysis using the Mini Mental Status Examination paired with informal evaluation procedures. The pt obtained a score of 13/30, exhibiting moderate to severe, widespread cognitive linguistic deficits as outlined above. The pt often became distracted mid-way through task completion as a result of impaired attention span. Verbal output was highly disorganized and tangential. The pt was consistently redirected to structured tasks for brief time intervals (~30 seconds). Foundational deficits in attention negatively impacted capacity to attend to and store novel information. The pt was oriented to current location, but disoriented to temporal and situational concepts. supervisor intermediates memory appears to be a relative area of strength. The pt was encountered interacting with 1:1 aide and looking at old family photographs. This appeared to be a positive activity that capitalized on relative area of cognitive linguistic strength. Continue to recommend engaging the pt in activities that encourage reminiscing conversations. Use of validation vs reality orientation is also recommended. Per [facility] criteria, patients are considered appropriate for memory care admission with consideration of MMSE score falling between 10-20 out of 30. Pt achieved a 13/30. If delirium/agitation continues to resolve, recommend return to [facility] memory care unit with access to 24/7 assistance at discharge. Speech Therapy Need ST will provide patient and caregiver instruction in strategies and exercises to support cognitive linguistic deficits and participation in meaningful daily activities for safe transition to prior living environment. PLAN OF CARE Goals 1. Pt will attend to structured, functional activities for 2 min intervals with min cues for attention processing techniques and re-direction to task. 2. Pt will refer to external visual systems to support immediate recall of functional information (e.g., current month, location, purpose) with mod assist. Rehabilitation Prognosis: Good. Appears to be slowly returning to baseline cognitive linguistic status as delirium resolves. Thank you for this referral. Kalyn Damon M.S., CCC-PRODUCT SAFETY HEAD Speech Therapist [*] JOSÉ
--- NOTE | 2018-09-05 11:26 | Hospitalist Progress Note ---
Subjective Progress Notes Subjective 88F admitted for asim. AJAY overnight, sitter reported minimal sleep. PCP saw her this am as well as psychiatry. Definitely improved but PCP noting some changes consistent with asim from baseline. Will observe overnight and reevaluate in am. Physical Exam Vital Signs Date Time Temp Pulse Resp B/P (MAP) Pulse Ox O2 Delivery O2 Flow Rate FiO2 09/05/18 08:10 86 09/05/18 08:10 Room Air 09/05/18 07:56 97.5 91 20 135/80 (98) 09/04/18 08:42 Intake and Output 09/05/18 07:00 Intake Total 600 ml Balance 600 ml Intake Oral 600 ml # Voids 2 General Appearance: Awake, No Acute Distress Neuro: No Gross deficits (impaired memory) Cardiovascular: Normal Rhythm & Peripheral Pulses Respiratory: No Respiratory Distress GI: Soft and Non-Tender Extremities: Soft and Non Tender, Warm, Pulses, Perfused, Other (+ ecchymosis in various states of healing) Psych: Other (Slightly pressured speech) Result Diagram: 09/01/18182409/01/181824 Assessment and Plan Problems: (1) Aggression Assessment & Plan: She has been started on scheduled quetiapine. The night time dose was increased to 25mg am remains 12.5mg. SSRI, trazodone, opioid pain medications stopped. (2) UTI (urinary tract infection) Status: Acute Assessment & Plan: She is afebrile and her WBC is not elevated. She did have leukocytes in the urine. She was started on empiric treatment with ceftriaxone. A urine culture is growing pansensitive E. coli. She will be transitioned to Ceftin twice daily for 5 additional days. (3) Paroxysmal atrial fibrillation Status: Acute Assessment & Plan: She is on chronic treatment with warfarin. INR has been elevated throughout admission. Adjusted warfarin dose. She will get INR Tuesday. (4) Dementia Status: Chronic Assessment & Plan: Severe, will need placement in some sort of memory care unit. Review of EMR shows a relatively low B12 level several years ago. MCV is elevated. Will repeat B12 and also a methylmalonic acid level. She will follow up with PCP for results. (5) Fracture, foot Assessment & Plan: Fall risk due to non-weight bearing status and severe dementia. Exam Sepsis Risk: No Definite Risk Problem Qualifiers (1) UTI (urinary tract infection): Urinary tract infection type: acute cystitis (2) Dementia: Dementia type: unspecified type Dementia behavioral disturbance: with behavi oral disturbance Qualified Codes: F03.91 - Unspecified dementia with behavior al disturbance FRANK MILAN DO Sep 05, 2018 11:26
[2018-09-05] MEDS: WARFARIN SOD 2.5 MG TAB PO SCH (13:25)
[2018-09-05 15:38] VITALS: BP 121/101
[2018-09-05 19:23] VITALS: BP 99/62
[2018-09-05 22:28] VITALS: BP 125/66
[2018-09-06] MEDS: ACETAMINOPHEN 325 MG TAB PO PRN ×2 (00:52→14:57)
[2018-09-06 07:28] VITALS: BP 143/65
[2018-09-06] MEDS: IBUPROFEN 200 MG TAB PO PRN ×2 (07:56→20:45)
[2018-09-06] MEDS: METOPROLOL TART 50 MG TAB PO SCH ×2 (08:55→20:45)
[2018-09-06] MEDS: CEFUROXIME AXETIL 250 MG TAB PO SCH ×2 (08:55→20:44)
[2018-09-06] MEDS: QUEtiapine FUM 25 MG TAB PO SCH (08:56)
[2018-09-06 09:03] LABS: INR 2.55
--- NOTE | 2018-09-06 10:06 | Hospitalist Progress Note ---
Subjective Progress Notes Subjective She appears to be improving from aggression and delirium. She appears none- aggressive and talkative this morning. She has no complaints. Patient Complains of: Cardiovascular: No: Chest Pain Respiratory: No: Shortness of Breath Physical Exam Vital Signs Date Time Temp Pulse Resp B/P (MAP) Pulse Ox O2 Delivery O2 Flow Rate FiO2 09/06/18 08:41 09/06/18 07:44 84 Room Air 09/06/18 07:28 98.5 97 14 143/65 (91) Intake and Output 09/06/18 01:00 Intake Total 480 ml Balance 480 ml Intake Oral 480 ml # Voids 3 General Appearance: Alert, Awake, No Acute Distress, Afebrile Neuro: No Gross deficits Cardiovascular: Regular Rate and Rhythm Respiratory: No Respiratory Distress, Clear to Auscultation Musculoskeletal: Other (has foot brace on) Psych: Alert & Oriented X3, Appropriate Mood & Affect Assessment and Plan Problems: (1) Aggression Assessment & Plan: She has been started on scheduled quetiapine. The night time dose was increased to 25mg am remains 12.5mg. SSRI, trazodone, opioid pain medications stopped. (2) UTI (urinary tract infection) Status: Acute Assessment & Plan: She is afebrile and her WBC is not elevated. She did have leukocytes in the urine. She was started on empiric treatment with ceftriaxone. A urine culture is growing pansensitive E. coli. She was transitioned to Ceftin twice daily for 5 additional days. (3) Paroxysmal atrial fibrillation Status: Acute Assessment & Plan: She is on chronic treatment with warfarin. INR has been elevated throughout admission, but now wnl. Adjusted warfarin dose. (4) Dementia Status: Chronic Assessment & Plan: Severe, will need placement in some sort of memory care unit. Review of EMR shows a relatively low B12 level several years ago. MCV is elevated. Will repeat B12 and also a methylmalonic acid level. She will follow up with PCP for results. (5) Fracture, foot Assessment & Plan: Fall risk due to non-weight bearing status and severe dementia. Exam Sepsis Risk: No Definite Risk Problem Qualifiers (1) UTI (urinary tract infection): Urinary tract infection type: acute cystitis (2) Dementia: Dementia type: unspecified type Dementia behavioral disturbance: with behavioral disturbance Qualified Codes: F03.91 - Unspecified dementia with behavioral disturbance BENNIE BRANCH Sep 06, 2018 10:06
[2018-09-06] MEDS: WARFARIN SOD 2.5 MG TAB PO SCH (13:29)
[2018-09-06 14:49] VITALS: BP 117/88
[2018-09-06 19:54] VITALS: BP 122/52
[2018-09-06] MEDS ORDERED: QUEtiapine FUM 25 MG TAB PO SCH (21:00)
[2018-09-06] MEDS: OLANZapine 10 MG VIAL IM ONLY PRN (22:53)
--- NOTE | 2018-09-06 22:53 | NUR ---
Med error, 10mg given to pt instead of ordered 5mg, provider notified, patient was agitated and yelling in the hallway, tried to enter other patient's rooms, became very combative with staff, after medication was administered patient became tired and returned to room and feel asleep, REMOTE OPERATIONS PRODUCER remained in room to monitor patient for 1:1 order, RAJ BRANTLEY
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
[2018-09-07 05:56] LABS: INR 2.55
[2018-09-07 07:31] VITALS: BP 131/65
[2018-09-07] MEDS: CEFUROXIME AXETIL 250 MG TAB PO SCH (08:17)
[2018-09-07] MEDS: METOPROLOL TART 50 MG TAB PO SCH (08:17)
[2018-09-07] MEDS: ACETAMINOPHEN 325 MG TAB PO PRN (08:18)
[2018-09-07] MEDS: QUEtiapine FUM 25 MG TAB PO SCH (08:18)
[2018-09-07] MEDS ORDERED: CEFU250T11 PO (09:10)
[2018-09-07] MEDS ORDERED: QUET50TA21 PO (09:30)
[2018-09-07] MEDS ORDERED: QUET25TA30 PO (09:30)
--- NOTE | 2018-09-07 09:36 | Hospitalist Depart ---
Discharge Summary Reason for Hosp/Final Diag: (1) Aggression Hospital Course & Plan: She had delirium upon admission, likely related to medications. She was started on scheduled quetiapine. The night time dose was increased to 50mg, am remains 12.5mg. SSRI, trazodone, opioid pain medications stopped. Improved. She will return to [facility] unit. (2) UTI (urinary tract infection) Status: Acute Hospital Course & Plan: She is afebrile and her WBC is not elevated. She did have leukocytes in the urine. She was started on empiric treatment with ceftriaxone. A urine culture is growing pansensitive E. coli. She was transitioned to Ceftin twice daily for 5 additional days. (3) Paroxysmal atrial fibrillation Status: Acute Hospital Course & Plan: She is on chronic treatment with warfarin. INR has been elevated throughout admission, but now wnl. Adjusted warfarin dose. (4) Dementia Status: Chronic Hospital Course & Plan: Severe, will need placement in some sort of memory care unit. Review of EMR shows a relatively low B12 level several years ago. MCV is elevated. Vitamin B12 and methylmalonic acid level are normal. (5) Fracture, foot Hospital Course & Plan: Fall risk due to non-weight bearing status and severe dementia. Departure Latest Vital Signs Vital Signs 09/07/18 09/07/18 09/07/18 09/07/18 07:31 07:34 07:45 07:49 Temp 97.7 Pulse 73 Resp 16 B/P (MAP) 131/65 (87) Pulse Ox 82 O2 Delivery Room Air O2 Flow Rate 2.0 Weight (Pounds): 118 Result Diagram: 09/01/18182409/01/181824 Condition: Improved Discharge: Assisted Living Discharge Instructions Home Meds Active Scripts Quetiapine Fumarate (SEROQUEL) 50 Mg Tablet, 50 MG PO QHS, #14 TAB Prov:BENNIE BRANCH EMBEDDED NURSE 09/07/18 Quetiapine Fumarate (SEROQUEL) 25 Mg Tablet, 12.5 MG PO QAM, #7 TAB Prov:BENNIE BRANCH EMBEDDED NURSE 09/07/18 Cefuroxime Axetil (CEFUROXIME) 250 Mg Tablet, 250 MG PO BID, #4 TAB Prov:BENNIE BRANCH [facility] 09/07/18 Warfarin Sodium (WARFARIN SODIUM) 2.5 Mg Tablet, 2.5 MG PO SuTuWeThSa, #30 TAB Prov:BENNIE BRANCH EMBEDDED NURSE 09/04/18 Warfarin Sodium (COUMADIN) 5 Mg Tablet, 5 MG PO MoFr, #30 TAB Prov:BENNIE BRANCH EMBEDDED NURSE 09/04/18 Polyethylene Glycol 3350 (MIRALAX) 17 Gm Powd.pack, 17 GM PO QDAY for 90 Days, #90 PKT 4 Refills HOLD For Loose Stools Prov:SAMIR BRANTLEY MD 08/29/18 Reported Medications Ibuprofen (IBUPROFEN) 200 Mg Capsule, 1-2 CAP PO Q6H, CAPSULE 09/01/18 Calcium Carbonate/Vitamin D3 (Caltrate 600 + D Soft Chew Tab) 1 Each Tab.chew, 1 TAB.CHEW PO DAILY 10/12/17 Acetaminophen 500 Mg Tab (ACETAMINOPHEN EXTRA STRENGTH) 500 Mg Tablet, 2 TAB PO Q8H PRN for PAIN, TAB 10/12/17 Metoprolol Tartrate (METOPROLOL TARTRATE) 50 Mg Tab, 1 TAB PO BID 09/12/17 Discontinued Reported Medications Citalopram Hydrobromide (CITALOPRAM HBR) 20 Mg Tablet, 10 MG PO QHS, #5 TAB 09/01/18 Warfarin Sodium (WARFARIN SODIUM) 5 Mg Tablet, 5 MG PO MWF 5mg Other 2.5, TAB take 1 tab po //, 0.5 tab po //Tue/Sun 02/25/17 Loperamide HCl (Imodium A-D) 2 Mg Capsule, 1-2 CAP PO PRN PRN for DIARRHEA 08/22/18 Calcium Carbonate/Mag Hydrox (ANTACID CHEWABLE TABLET) 1 Each Tab.chew, 2 TAB PO Q2H PRN for prn, TAB.CHEW 08/22/18 Mag Hydrox/Aluminum Hyd/Simeth (Maalox Advanced Suspension) 200 Mg-200 Mg-20 Mg/5 Ml Oral.susp, 15 ML PO PRN 08/22/18 Aspirin (ASPIRIN) 325 Mg Tablet, 1 TAB PO ONCE PRN for CHEST PAIN, TAB 08/22/18 Guaifenesin/Dextromethorphan (Robitussin Cough-Chest Dm Liq) 50 Mg-5 Mg/5 Ml Liquid, 5 ML PO Q4-6H PRN for COUGH 08/22/18 Discontinued Scripts Prazosin Hcl (PRAZOSIN HCL) 1 Mg Capsule, 1 CAP PO QHS, #30 CAPSULE 0 Refills Prov:SEAN MONTEJO APRN EMBEDDED NURSE-C 09/01/18 Trazodone Hcl (TRAZODONE HCL) 50 Mg Tablet, 1 TAB PO QHS for 30 Days, #30 TAB Prov:SAMIR BRANTLEY MD 08/29/18 Oxycodone Hcl (OXYCODONE HCL) 5 Mg Tablet, 0.5-1 TAB PO TID PRN for pain, #30 TAB Prov:SAMIR BRANTLEY MD 08/29/18 Citalopram Hydrobromide (CITALOPRAM HBR) 10 Mg Tablet, 10 MG PO QDAY for 90 Days, #90 TAB Prov:SAMIR BRANTLEY MD 08/28/18 Diet: Regular Activity: As Tolerated, With Walker Special Instructions: Follow up with Primary Care Provider in one week. Complete antibiotics as directed for UTI. Copies to: SAMIR BRANTLEY MD ; Venous Thromboembolism Antithrombotics Is Pt On Any Antithrombotics?: Yes Problem Qualifiers (1) UTI (urinary tract infection): Urinary tract infection type: acute cystitis (2) Dementia: Dementia type: unspecified type Dementia behavioral disturbance: with behavioral disturbance Qualified Codes: F03.91 - Unspecified dementia with behavioral disturbance BENNIE BRANCH Sep 07, 2018 09:36
[2018-09-07] MEDS: IBUPROFEN 200 MG TAB PO PRN (10:49)
[2018-09-08] MEDS ORDERED: QUET25TA30 PO (14:11)
[2018-09-08] MEDS ORDERED: QUET50TA21 PO (14:11)
[2018-09-08] MEDS ORDERED: LIT150 PO (14:11)
== END 2018-09-07 13:45 | disposition home or self-care (01) | DRG 92 ==
LOC: ER 17:39 → MED 21:52 → INTOOBSV 21:52 → OBSVTOIN 09-05 → INTOOBSV 09-05
PROVIDERS: ADMIT Internal Medicine; ATTEND Internal Medicine
DX: G92 Toxic encephalopathy (principal); F03.91 Unspecified dementia, unspecified severity, with behavioral disturbance; F30.9 Manic episode, unspecified; N39.0 Urinary tract infection, site not specified; F05 Delirium due to known physiological condition; R41.82 Altered mental status, unspecified; I10 Essential (primary) hypertension; M19.90 Unspecified osteoarthritis, unspecified site; I48.0 Paroxysmal atrial fibrillation; B96.20 Unspecified Escherichia coli [E. coli] as the cause of diseases classified elsewhere; I25.10 Atherosclerotic heart disease of native coronary artery without angina pectoris; G47.00 Insomnia, unspecified; T40.2X5A Adverse effect of other opioids, initial encounter; T43.215A Adverse effect of selective serotonin and norepinephrine reuptake inhibitors, initial encounter; Z79.01 Long term (current) use of anticoagulants; Z87.891 Personal history of nicotine dependence; Z91.81 History of falling; S92.212D Displaced fracture of cuboid bone of left foot, subsequent encounter for fracture with routine healing
CPT/HCPCS: 36415; 70450; 80305; 80320; 80329; 81001; 82040; 82247; 82310; 82374; 82435; 82565; 82607; 82947; 83735; 83921; 84075; 84132; 84155; 84295; 84443; 84450; 84460; 84520; 85025; 85610; 87077; 87088; 87186; 92523; 96365; 96372; 97163; 99285; A4216; G0378; J0696; J1885; J3490

== ENCOUNTER → 2018-09-01 | Outpatient (CLI) | payer MEDICARE, BC ==
[2018-08-14 10:14] VITALS: BMI 21.2
[~2018-09-01] MED LIST changes: +ASPI-757 PO; +CALC1TAB24 PO; +CEFU250T11 PO; +CITA-145 PO; +GUAI237L36 PO; +IBUP-136 PO; +IBUP-56 PO; +LOPE2CAP15 PO; +MAG-65 PO; +OXYC5TAB38 PO; +POLY17PO25 PO; +PRAZ1CAP26 PO; +QUET25TA30 PO; +QUET50TA21 PO; +TRAZ50TA34 PO; +WARF-1 PO; +WARF2.5T11 PO
== END ==
LOC: AMB 16:38
PROVIDERS: ATTEND Nurse Practitioner
DX: R41.82 Altered mental status, unspecified (principal); R45.1 Restlessness and agitation; M79.671 Pain in right foot
CPT/HCPCS: A0425; A0429

== ENCOUNTER → 2018-09-05 | Outpatient (CLI) | payer MEDICARE, BC ==
[2018-08-14 10:14] VITALS: BMI 21.2
[~2018-09-05] MED LIST changes: +CEFU250T11 PO; +CITA-145 PO; +IBUP-136 PO; +LIT150 PO; +QUET25TA30 PO; +QUET50TA21 PO; +WARF-1 PO; +WARF2.5T11 PO
== END ==
LOC: ZZSPRING 01:34
PROVIDERS: ATTEND Internal Medicine Cardiovascular Disease
DX: Z02.9 Encounter for administrative examinations, unspecified (principal)